=== PATIENT | male | born 1960 | race Caucasian/White ===

== ENCOUNTER → 2016-07-23 | Outpatient (CLI) | payer OTHER ==
[~2016-07-23] MED LIST: ASPI81TA28 PO; FURO40TA3 PO; KLOR CON PO; LRT5 PO; METO-217 PO; SIMV40TA4 PO; TELM40TA PO
[2016-07-23 12:44] LABS: HEMATOCRIT 46.1 % (42-52); MEAN CORPUSCULAR HEMOGLOBIN 31.3 pg (25-34); MEAN CORPUSCULAR HGB CONC 35.1 g/dl (32-36); MEAN PLATELET VOLUME 9.9 fL (7.4-10.4); PLATELET COUNT 154 K/uL (130-400); RED BLOOD COUNT 5.18 M/uL (4.7-6.1); WHITE BLOOD COUNT 7.97 K/uL (4.8-10.8)
[2016-07-23 13:03] LABS: CHOLESTEROL/HDL RATIO 2.7
== END | disposition home or self-care (01) ==
LOC: C.LABPBG 11:14
PROVIDERS: ATTEND Internal Medicine Geriatric Medicine
DX: Z00.00 Encounter for general adult medical examination without abnormal findings (principal)

== ENCOUNTER 2020-02-04 15:13 | Observation (INO) ==
--- NOTE | 2020-02-04 15:51 | Emergency Department Note ---
Impression & Plan VENESSA (acute kidney injury), Dehydration, Diarrhea ED Provider Note NAME: KATHE MOON AGE: 59 SEX: M : 1960 ARRIVES VIA: Walk-In INFORMANT: Patient, ED PROVIDER(S): Td Scales MD Chief Complaint: Low blood pressure HPI: Patient does present as a referral from the cancer center due to low blood pressure. The patient states that he has had some diarrheal symptoms since Saturday. No recent change in diet or medications. The patient did have a recent admission and discharge for persistent atrial fibrillation at the end of December for the patient was placed on digoxin. The patient did have recent change in his digoxin from 250 mcg to 125. This was last taken last night and has been taking his metoprolol 100 mg twice daily. Patient denies any infectious symptoms, fevers or chills. The patient has had some worsening fatigue lightheadedness and sleepiness.. The patient denies any blood in the urine or stool. The patient denies any urinary changes. The patient denies any lower extremity swelling, covered exposures. Patient does state that laying back he does have mild improvement in his symptoms. Patient is currently undergoing radiation therapy for prostate cancer for which she does see Dr. Arita. Patient does follow with Dr. Morse as well as with Dr. Cevallos with cardiology. ROS: See HPI for pertinent positives and negatives. A total of 10 systems were reviewed and otherwise negative. Past medical history: See below Surgical history: See below Social history: See below Physical Exam: GENERAL: Wearing glasses and a mask. NAD, non-toxic. EYE EXAM: Normal conjunctiva. PERRL, no anisocoria and EOM's grossly intact w/o pain. NECK: Supple, no nuchal rigidity, no adenopathy, non-tender. No signs of meningismus. LUNGS: Clear to auscultation. Normal chest wall mechanics. HEART: Irregularly irregular, no MRG. ABDOMEN: Abdomen soft, non-tender, normo-active bowel sounds, no masses, no rebound or guarding. BACK: No CVA TTP. SKIN: No rashes and no bruising. UPPER EXTREMITIES: Upper extremities are grossly normal. LOWER EXTREMITIES: Grossly normal, no edema. Homans sign bilaterally NEURO EXAM: A&O x3, cranial nerves II-XII grossly intact, normal speech, moves all 4 extremities on command w/o issue. Differential diagnoses: Infection, dehydration, metabolic abnormality, hypo/hyperglycemia, electrolyte disturbance, anemia, hypoxia, cardiac sources, intracerebral event, toxicologic, neurologic, as well as other pathologies. Course: Patient was seen and evaluated the bedside. Full history physical exam was performed. EKG: Indication: Lightheadedness A. fib, rate of 67, normal QRS, normal axis, T wave inversions inferiorly and laterally. The patient's A. fib is new but known to the patient from comparison EKG February 21, 2016. Patient's T wave versions do appear to be new compared to prior. Imaging Studies: Radiology results as stated below per my review in the radiologist's interpretation: XR chest 1V portable CLINICAL HISTORY: weakness COMPARISON STUDY: Chest CT February 19, 2016. Chest radiograph November 12, 2019. FINDINGS: There are median sternotomy wires. Incidental note is made of multiple old bilateral rib fractures. There is moderate cardiomegaly without evidence for pulmonary edema. There is no consolidation. The appearance of the chest is unchanged. Prosthetic aortic valve is noted. There is no pneumothorax or pleural effusion. IMPRESSION: No change in appearance of the chest. Cardiomegaly without evidence for pulmonary edema. ACT 112: Negative or not required by law. Electronically signed by: Bryan Lopez M.D. 02/04/2020 4:26 PM Dictated: 02/04/20 1625 Transcribed: 02/04/20 1625 Cardiac monitoring: An order was placed for continuous cardiac monitoring. The monitor shows a rate of 71 with irregularly irregular rhythm. MDM: Patient was seen due to concern for low blood pressure. The patient did have blood work completed along with an EKG troponin chest x-ray and was given IV fluids. The patient's chest x-ray is clear. Patient did have these EKG changes but the patient's prior EKG that I am able to view is from 2016. Has any chest pains or shortness of breath. Patient has a normal white count mild anemia hemoglobin 12.9. Normal platelet count is noted. Patient's kidney function does show elevated creatinine at 2.7. Patient has a baseline of approximately 1. The patient states that he has urinated twice since he has been here. Dig levels within a normal range. The patient would prefer to go home this time. I discussed that it may be of benefit to stay in the hospital given the patient's multiple medications and the patient's associated kidney dysfunction. I discussed the patient's case with the on-call waste management specialist Dr. Sawyer who agreed with my assessment/plan and recommended the patient be admitted for continued observation, renal function as well as medication management and IV fluids given the patient's acute renal dysfunction, VENESSA, dehydration as well as the fact that the patient is on renally excreted medications. I did speak the on-call hospitalist Dr. Stewart who admitted the patient to the medicine service. Of note the patient did feel improved after IV fluids. The patient is also urinated twice since receiving IV fluids. The patient's dig level within normal limits. Past Med/Surg History Medical History Asthma stable, rare inhaler use Atrial fibrillation dx'd 09/2019- placed on Eliquis Bicuspid aortic valve severe aortic stenosis s/p AVR (2009) Dyslipidemia HTN (hypertension) Lower back pain LING (obstructive sleep apnea) suspected Osteoarthritis Prostate cancer Prostate cancer Surgical History Biceps muscle tear 2014-surgical repair Heart valve replaced bovine AVR [facility] [place] History of bunionectomy both on left & right foot mid History of cardiac cath 2009 PRIOR TO AVR-NO STENTS History of colonoscopy History of hip replacement left replaced in 2001, right hip resurfaced in 2011 Family History Mother , age 75 from heart disease Diabetes Heart disease Father , age 74 heart issues COPD (chronic obstructive pulmonary disease) Daughter No problems noted. Son No problems noted. Social History Smoking Status: Never smoker Second Hand Exposure: Yes (PARENTS SMOKED); Hx Alcohol Use: Yes Alcohol type: beer Alcohol Intake Frequency Comment: 3-4 daily 2-3 times a week. 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 Feels Safe at Home: Yes Childhood Exposure to Second-Hand Smoke: Yes caffeine: Yes (1 cup a day) Dental Care, Regularly: Yes Allergies Allergies Allergy/AdvReac Type Severity Reaction Status Date / Time No Known Allergies Allergy Verified 02/04/20 17:34 dogs Allergy Severe diffiiculty Uncoded 02/04/20 17:34 breathing Home Meds Home Medications Medication Instructions Recorded Confirmed metoprolol succinate 50 mg 100 mg PO BID tab 10/20/19 02/04/20 tablet,extended release 24 hr simvastatin 40 mg tablet 40 mg PO QAM tab 10/20/19 02/04/20 Eliquis 5 mg PO BID 11/10/19 02/04/20 albuterol sulfate 1 inh INHALATION QID PRN 11/10/19 02/04/20 aspirin [Aspir-81] 81 mg PO QAM 11/10/19 02/04/20 potassium chloride [Klor-Con 10] 10 meq PO QAM 11/10/19 02/04/20 spironolactone 25 mg PO QAM 11/10/19 02/04/20 telmisartan 40 mg PO QAM 11/10/19 02/04/20 calcium carbonate 600 mg calcium 600 mg PO DAILY 12/23/19 02/04/20 (1,500 mg) tablet cholecalciferol (vitamin D3) 50 50 mcg PO DAILY 12/23/19 02/04/20 mcg (2,000 unit) tablet torsemide 20 mg tablet See Rx Instructions PO DAILY 01/13/20 02/04/20 digoxin 250 mcg (0.25 mg) tablet 250 mcg PO DAILY tab 01/26/20 02/04/20 diphenoxylate-atropine [Lomotil] 1 tab PO QID PRN 02/04/20 02/04/20 leuprolide (3 month) 22.5 mg SUBCUT UD 02/04/20 02/04/20 Previous Rx's Medication Instructions Recorded alfuzosin 10 mg tablet,extended 10 mg PO DAILY #90 tab 11/11/19 release 24 hr sildenafil 100 mg tablet 100 mg PO .COMPLEX PRN #6 tab 11/19/19 Results & Data (ED) Vital Signs Vital Signs - 24 hr 02/04/20 15:27 02/04/20 15:35 02/04/20 15:37 Temperature 36.5 C Temperature Source Oral Pulse Rate 71 60 62 Pulse Rate from SpO2 Sensor 65 65 Pulse Rhythm Regular Pulse Strength Normal Respiratory Rate 18 15 13 Respiratory Effort / Characteristics Non-Labored Spontaneous Respiratory Depth Normal Respiratory Pattern Regular Blood Pressure 75/42 L 72/50 L Blood Pressure Mean 53 51 Blood Pressure Position Sitting Pulse Oximetry 95 97 97 Oxygen Delivery Method Room Air Room Air Room Air Sepsis Recent Fever Within 48 Hours No Sepsis New/Unexplained Change in Mental Status N/A Sepsis Action Taken by Nursing No Action Required 02/04/20 15:40 02/04/20 15:49 02/04/20 15:50 Temperature Temperature Source Pulse Rate 70 62 Pulse Rate from SpO2 Sensor 72 60 Pulse Rhythm Pulse Strength Respiratory Rate 16 16 Respiratory Effort / Characteristics Respiratory Depth Respiratory Pattern Blood Pressure Blood Pressure Mean Blood Pressure Position Pulse Oximetry 98 100 Oxygen Delivery Method Room Air Room Air Room Air Sepsis Recent Fever Within 48 Hours Sepsis New/Unexplained Change in Mental Status Sepsis Action Taken by Nursing 02/04/20 16:00 02/04/20 16:01 02/04/20 16:10 Temperature Temperature Source Pulse Rate 65 62 61 Pulse Rate from SpO2 Sensor 62 68 61 Pulse Rhythm Pulse Strength Respiratory Rate 17 25 H 16 Respiratory Effort / Characteristics Respiratory Depth Respiratory Pattern Blood Pressure 85/51 L Blood Pressure Mean 64 Blood Pressure Position Pulse Oximetry 98 99 100 Oxygen Delivery Method Room Air Room Air Room Air Sepsis Recent Fever Within 48 Hours Sepsis New/Unexplained Change in Mental Status Sepsis Action Taken by Nursing 02/04/20 16:16 02/04/20 16:20 02/04/20 16:30 Temperature Temperature Source Pulse Rate 71 64 60 Pulse Rate from SpO2 Sensor 70 61 61 Pulse Rhythm Pulse Strength Respiratory Rate 18 22 16 Respiratory Effort / Characteristics Respiratory Depth Respiratory Pattern Blood Pressure 85/44 L Blood Pressure Mean 70 Blood Pressure Position Pulse Oximetry 98 96 94 Oxygen Delivery Method Room Air Room Air Room Air Sepsis Recent Fever Within 48 Hours Sepsis New/Unexplained Change in Mental Status Sepsis Action Taken by Nursing 02/04/20 16:31 02/04/20 16:32 02/04/20 16:40 Temperature Temperature Source Pulse Rate 63 68 70 Pulse Rate from SpO2 Sensor 59 L 66 67 Pulse Rhythm Pulse Strength Respiratory Rate 22 20 Respiratory Effort / Characteristics Respiratory Depth Respiratory Pattern Blood Pressure 97/58 L Blood Pressure Mean 60 Blood Pressure Position Pulse Oximetry 99 99 95 Oxygen Delivery Method Room Air Room Air Room Air Sepsis Recent Fever Within 48 Hours Sepsis New/Unexplained Change in Mental Status Sepsis Action Taken by Nursing 02/04/20 16:46 02/04/20 16:50 02/04/20 17:00 Temperature Temperature Source Pulse Rate 58 L 70 68 Pulse Rate from SpO2 Sensor 62 69 72 Pulse Rhythm Pulse Strength Respiratory Rate Respiratory Effort / Characteristics Respiratory Depth Respiratory Pattern Blood Pressure 90/58 L Blood Pressure Mean 68 Blood Pressure Position Pulse Oximetry 98 98 92 Oxygen Delivery Method Room Air Room Air Room Air Sepsis Recent Fever Within 48 Hours Sepsis New/Unexplained Change in Mental Status Sepsis Action Taken by Nursing 02/04/20 17:01 02/04/20 17:10 02/04/20 17:16 Temperature Temperature Source Pulse Rate 62 73 69 Pulse Rate from SpO2 Sensor 64 70 71 Pulse Rhythm Pulse Strength Respiratory Rate Respiratory Effort / Characteristics Respiratory Depth Respiratory Pattern Blood Pressure 93/55 L 95/62 L Blood Pressure Mean 69 70 Blood Pressure Position Pulse Oximetry 99 96 99 Oxygen Delivery Method Room Air Room Air Room Air Sepsis Recent Fever Within 48 Hours Sepsis New/Unexplained Change in Mental Status Sepsis Action Taken by Nursing 02/04/20 17:20 02/04/20 17:30 02/04/20 17:31 Temperature Temperature Source Pulse Rate 72 72 61 Pulse Rate from SpO2 Sensor 74 73 62 Pulse Rhythm Pulse Strength Respiratory Rate Respiratory Effort / Characteristics Respiratory Depth Respiratory Pattern Blood Pressure 97/60 L Blood Pressure Mean 77 Blood Pressure Position Pulse Oximetry 98 95 99 Oxygen Delivery Method Room Air Room Air Room Air Sepsis Recent Fever Within 48 Hours Sepsis New/Unexplained Change in Mental Status Sepsis Action Taken by Nursing 02/04/20 17:40 02/04/20 17:46 02/04/20 17:47 Temperature Temperature Source Pulse Rate 73 71 66 Pulse Rate from SpO2 Sensor 69 76 59 L Pulse Rhythm Pulse Strength Respiratory Rate Respiratory Effort / Characteristics Respiratory Depth Respiratory Pattern Blood Pressure 78/61 L 103/59 L Blood Pressure Mean 67 65 Blood Pressure Position Pulse Oximetry 98 99 98 Oxygen Delivery Method Room Air Room Air Room Air Sepsis Recent Fever Within 48 Hours Sepsis New/Unexplained Change in Mental Status Sepsis Action Taken by Nursing 02/04/20 17:48 02/04/20 17:50 02/04/20 18:00 Temperature Temperature Source Pulse Rate 63 70 71 Pulse Rate from SpO2 Sensor 65 68 63 Pulse Rhythm Pulse Strength Respiratory Rate Respiratory Effort / Characteristics Respiratory Depth Respiratory Pattern Blood Pressure Blood Pressure Mean Blood Pressure Position Pulse Oximetry 97 98 95 Oxygen Delivery Method Room Air Room Air Room Air Sepsis Recent Fever Within 48 Hours Sepsis New/Unexplained Change in Mental Status Sepsis Action Taken by Nursing 02/04/20 18:01 02/04/20 18:18 02/04/20 18:20 Temperature Temperature Source Pulse Rate 67 68 66 Pulse Rate from SpO2 Sensor 75 Pulse Rhythm Pulse Strength Respiratory Rate Respiratory Effort / Characteristics Respiratory Depth Respiratory Pattern Blood Pressure 97/56 L Blood Pressure Mean 68 Blood Pressure Position Pulse Oximetry 92 Oxygen Delivery Method Room Air Room Air Room Air Sepsis Recent Fever Within 48 Hours Sepsis New/Unexplained Change in Mental Status Sepsis Action Taken by Nursing 02/04/20 18:30 02/04/20 18:31 02/04/20 18:40 Temperature Temperature Source Pulse Rate 67 68 66 Pulse Rate from SpO2 Sensor 68 65 67 Pulse Rhythm Pulse Strength Respiratory Rate Respiratory Effort / Characteristics Respiratory Depth Respiratory Pattern Blood Pressure 88/53 L Blood Pressure Mean 54 Blood Pressure Position Pulse Oximetry 99 98 Oxygen Delivery Method Room Air Room Air Room Air Sepsis Recent Fever Within 48 Hours Sepsis New/Unexplained Change in Mental Status Sepsis Action Taken by Nursing 02/04/20 18:45 02/04/20 18:50 Temperature Temperature Source Pulse Rate 68 66 Pulse Rate from SpO2 Sensor 61 70 Pulse Rhythm Pulse Strength Respiratory Rate Respiratory Effort / Characteristics Respiratory Depth Respiratory Pattern Blood Pressure 106/61 Blood Pressure Mean 72 Blood Pressure Position Pulse Oximetry 98 98 Oxygen Delivery Method Room Air Room Air Sepsis Recent Fever Within 48 Hours Sepsis New/Unexplained Change in Mental Status Sepsis Action Taken by [facility] Medications Current Medication List: was personally reviewed by me Laboratory Data Attestation: I reviewed the patient's lab results. Result diagrams: 02/04/20 15:47 02/04/20 15:47 Lab Results 02/04/20 02/04/20 02/04/20 Range/Units 15:47 15:47 15:47 WBC 8.93 (4.8-10.8) K/uL RBC 4.11 L (4.7-6.1) M/uL Hgb 12.9 L (14.0-18.0) g/dL Hct 38.1 L (42-52) % MCV 92.7 (80-100) fL MCH 31.4 (25-34) pg MCHC 33.9 (32-36) g/dL RDW Std Deviation 46.2 (36.4-46.3) fL RDW Coeff of Janell 13.7 (11.5-14.5) % Plt Count 172 (130-400) K/uL MPV 10.0 (7.4-10.4) fL Immature Gran % (Auto) 0.2 % Neut % (Auto) 76.6 % Lymph % (Auto) 8.1 % [place] % (Auto) 10.1 % Eos % (Auto) 4.9 % Baso % (Auto) 0.1 % Neut # (Auto) 6.84 H (1.4-6.5) K/uL Lymph # (Auto) 0.72 L (1.2-3.4) K/uL [place] # (Auto) 0.90 H (0.11-0.59) K/uL Eos # (Auto) 0.44 (0-0.5) K/uL Baso # (Auto) 0.01 (0-0.2) K/uL Immature Gran # (Auto) 0.02 (0.00-0.02) K/uL PT 12.6 H (9.0-12.0) Seconds INR 1.2 H (0.9-1.1) Sodium 137 (136-145) mmol/L Potassium 3.6 (3.5-5.1) mmol/L Chloride 105 (98-107) mmol/L Carbon Dioxide 24 (21-32) mmol/L Anion Gap 8.0 (3-11) BUN 33 H (7-18) mg/dl Creatinine 2.73 H (0.6-1.4) mg/dl Est Cr Clr Drug Dosing Not Reportable Est GFR ( Amer) 27.8 Est GFR (Non-Af Amer) 24.0 BUN/Creatinine Ratio 11.9 (10-20) Glucose 129 H (70-99) mg/dl Calcium 9.2 (8.5-10.1) mg/dl Phosphorus 4.0 (2.5-4.9) mg/dl Magnesium 1.9 (1.8-2.4) mg/dl Total Bilirubin 0.8 (0.2-1) mg/dl AST 17 (15-37) U/L ALT 34 (12-78) U/L Alkaline Phosphatase 70 (45-117) U/L Troponin I < 0.015 (0-0.045) ng/ml Total Protein 7.2 (6.4-8.2) gm/dl Albumin 3.5 (3.4-5.0) gm/dl Globulin 3.7 (2.5-4.0) gm/dl Albumin/Globulin Ratio 0.9 (0.9-2) TSH 0.522 (0.300-4.500) uIu/ml Digoxin (0.8-2.0) ng/ml 02/04/20 Range/Units 15:47 WBC (4.8-10.8) K/uL RBC (4.7-6.1) M/uL Hgb (14.0-18.0) g/dL Hct (42-52) % MCV (80-100) fL MCH (25-34) pg MCHC (32-36) g/dL RDW Std Deviation (36.4-46.3) fL RDW Coeff of Janell (11.5-14.5) % Plt Count (130-400) K/uL MPV (7.4-10.4) fL Immature Gran % (Auto) % Neut % (Auto) % Lymph % (Auto) % [place] % (Auto) % Eos % (Auto) % Baso % (Auto) % Neut # (Auto) (1.4-6.5) K/uL Lymph # (Auto) (1.2-3.4) K/uL [place] # (Auto) (0.11-0.59) K/uL Eos # (Auto) (0-0.5) K/uL Baso # (Auto) (0-0.2) K/uL Immature Gran # (Auto) (0.00-0.02) K/uL PT (9.0-12.0) Seconds INR (0.9-1.1) Sodium (136-145) mmol/L Potassium (3.5-5.1) mmol/L Chloride (98-107) mmol/L Carbon Dioxide (21-32) mmol/L Anion Gap (3-11) BUN (7-18) mg/dl Creatinine (0.6-1.4) mg/dl Est Cr Clr Drug Dosing Est GFR ( Amer) Est GFR (Non-Af Amer) BUN/Creatinine Ratio (10-20) Glucose (70-99) mg/dl Calcium (8.5-10.1) mg/dl Phosphorus (2.5-4.9) mg/dl Magnesium (1.8-2.4) mg/dl Total Bilirubin (0.2-1) mg/dl AST (15-37) U/L ALT (12-78) U/L Alkaline Phosphatase (45-117) U/L Troponin I (0-0.045) ng/ml Total Protein (6.4-8.2) gm/dl Albumin (3.4-5.0) gm/dl Globulin (2.5-4.0) gm/dl Albumin/Globulin Ratio (0.9-2) TSH (0.300-4.500) uIu/ml Digoxin 1.3 (0.8-2.0) ng/ml Administered Medications Discontinued Medications Sodium Chloride (Nss 1000ml) 1,000 mls @ 999 mls/hr IV .Q1H1M PHUONG Stop: 02/04/20 17:15 Last Infusion: 02/04/20 17:11 Dose: 0 mls/hr Documented by: [id number] Admin: 02/04/20 16:09 Dose: 999 mls/hr Documented by: [id number] Discharge Plan Visit Data Chief Complaint: Hypotension Stated Complaint: HYPOTENSION,DIARRHEA,CANCER PT ED Provider: Td Scales Discharge Problem: VENESSA (acute kidney injury), Dehydration, Diarrhea Forms Stand Alone Forms: [facility] [place] [employer] Prescriptions Prescriptions: No Action cholecalciferol (vitamin D3) 50 mcg (2,000 unit) tablet 50 mcg PO DAILY RF: 0 calcium carbonate 600 mg calcium (1,500 mg) tablet 600 mg PO DAILY RF: 0 sildenafil 100 mg tablet 100 mg PO .COMPLEX PRN (Reason: sexual activity) Qty: 6 RF: 3 torsemide 20 mg tablet See Rx Instructions PO DAILY RF: 0 digoxin 250 mcg (0.25 mg) tablet 250 mcg PO DAILY RF: 0 alfuzosin [Uroxatral] 10 mg tablet extended release 24 hr 10 mg PO DAILY Qty: 90 RF: 1 metoprolol succinate 50 mg tablet extended release 24 hr 100 mg PO BID RF: 0 simvastatin 40 mg tablet 40 mg PO QAM RF: 0 aspirin [Aspir-81] 81 mg Tablet,Delayed Release (Dr/Ec) 81 mg PO QAM RF: 0 potassium chloride [Klor-Con 10] 10 mEq tablet extended release 10 meq PO QAM RF: 0 telmisartan 40 mg tablet 40 mg PO QAM RF: 0 spironolactone 25 mg Tablet 25 mg PO QAM RF: 0 Eliquis 5 mg Tablet 5 mg PO BID RF: 0 albuterol sulfate 90 mcg/actuation Hfa Aerosol Inhaler 1 inh INHALATION QID PRN (Reason: Wheezing) RF: 0 diphenoxylate-atropine [Lomotil] 2.5-0.025 mg tablet 1 tab PO QID PRN (Reason: diarrhea) RF: 0 leuprolide (3 month) 22.5 mg syringe 22.5 mg subcut UD RF: 0 Discharge Problem: Diarrhea Qualifiers: Diarrhea type: unspecified type Qualified Code(s): R19.7 - Diarrhea, unspecified
[2020-02-04 16:15] LABS: Basophils # (auto) 0.01 K/uL (0-0.2); Basophils % (auto) 0.1 %; Eosinophils # (auto) 0.44 K/uL (0-0.5); Eosinophils % (auto) 4.9 %; Hematocrit (blood only) 38.1 % (42-52); Hemoglobin 12.9 g/dL (14.0-18.0); Immature Granulocytes # (auto) 0.02 K/uL (0.00-0.02); Immature Granulocytes % (auto) 0.2 %; Lymphocytes # (auto) 0.72 K/uL (1.2-3.4); Lymphocytes % (auto) 8.1 %; Mean Corpuscular Hemoglobin 31.4 pg (25-34); Mean Corpuscular Hgb Conc 33.9 g/dL (32-36); Mean Corpuscular Volume 92.7 fL (80-100); Monocytes % (auto) 10.1 %; Neutrophils # (auto) 6.84 K/uL (1.4-6.5); Neutrophils % (auto) 76.6 %; Platelet Count 172 K/uL (130-400); RDW Coefficient of Variation 13.7 % (11.5-14.5); RDW Standard Deviation 46.2 fL (36.4-46.3); Red Blood Count 4.11 M/uL (4.7-6.1); White Blood Count 8.93 K/uL (4.8-10.8)
[2020-02-04] MEDS ORDERED: SODIUM CHLORIDE 0.9% 1000ML 1,000 ML IV SCH (16:15)
[2020-02-04 16:22] LABS: Alanine Aminotransferase 34 U/L (12-78); Albumin Level 3.5 gm/dl (3.4-5.0); Aspartate Aminotransferase 17 U/L (15-37); BUN Creatinine Ratio 11.9 (10-20); Blood Urea Nitrogen 33 mg/dl (7-18); Calcium 9.2 mg/dl (8.5-10.1); Carbon Dioxide 24 mmol/L (21-32); Chloride 105 mmol/L (98-107); Est GFR (African American) 27.8; Glucose 129 mg/dl (70-99); Magnesium 1.9 mg/dl (1.8-2.4); Potassium 3.6 mmol/L (3.5-5.1); Sodium 137 mmol/L (136-145)
[2020-02-04 16:24] LABS: INR 1.2 (0.9-1.1); Prothrombin Time 12.6 Seconds (9.0-12.0)
--- NOTE | 2020-02-04 16:27 | XRay Report ---
XR chest 1V portable CLINICAL HISTORY: weakness COMPARISON STUDY: Chest CT February 19, 2016. Chest radiograph November 12, 2019. FINDINGS: There are median sternotomy wires. Incidental note is made of multiple old bilateral rib fr actures. There is moderate cardiomegaly without evidence for pulmonary edema. There is no consolidati on. The appearance of the chest is unchanged. Prosthetic aortic valve is noted. There is no pneumotho rax or pleural effusion. IMPRESSION: No change in appearance of the chest. Cardiomegaly without evidence for pulmonary edema. ACT 112: Negative or not required by law. Electronically signed by: Bryan Lopez M.D. 02/04/2020 4:26 PM
[2020-02-04 16:31] LABS: Albumin Globulin Ratio 0.9 (0.9-2); Alkaline Phosphatase 70 U/L (45-117); Bilirubin,Total 0.8 mg/dl (0.2-1); Globulin 3.7 gm/dl (2.5-4.0); Thyroid Stimulating Hormone 0.522 uIu/ml (0.300-4.500); Total Protein 7.2 gm/dl (6.4-8.2); Troponin I < 0.015 ng/ml (0-0.045)
--- NOTE | 2020-02-04 18:17 | History & Physical Report ---
Date of Service February 04, 2020 Assessment & Plan (1) VENESSA (acute kidney injury): Suspect secondary to diarrhea while on torsemide and spironolactone. UA pending to assess for granular casts Hold telmisartan, torsemide and spironolactone. Bladder scan PVR to assess for urinary retention. 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 Stool culture and c. diff pending Lomotil can be restarted if c. diff negative. (3) Prostate cancer: Radiation seeds implanted in November. Currently on Leuprolide. Week 4 of [address] Arita - radiation oncology. (4) Atrial fibrillation: Hold digoxin and Eliquis until renal function improves - can likely be restarted in AM. Continue metoprolol succinate 100 mg PO BID (5) Heart failure with reduced ejection fraction: Monitor for fluid overload given significant quantity/dose of diuretics he usually takes. (6) HTN (hypertension): Monitor for hypertension as we hold his anti-hypertensives. Ok to continue metoprolol succinate to avoid rebound tachycardia with a. fib. (7) Bicuspid aortic valve: s/p AVR 2009 (8) DVT prophylaxis: Restart Eliquis once renal function improves. Admission and Anticipated Discharge Date Admission Date: 02/04/2020 History of Present Illness Chief Complaint: Diarrhea, hypotension Primary Care Provider: Nancie Wolff PA-C [place] Williamson is a 59 year old male with prostate cancer undergoing radiation therapy who presents to the ER on the advice of his oncologist due to hypotension. He reports having sudden onset watery diarrhea for the last 4 days. Associated dizziness and lightheadedness, no chest pain. Urinating less but no nocturia, terminal dribbling, change in stream or urinary frequency. BP 56/33 in his oncologist office. No recent antibiotics. In the ER Cr was found to be elevated from baseline 1.18 to 2.73. No nausea or vomiting, reduced appetite, no blood, no melena. No abdominal pain. Lomotil started yesterday and has been helping. He also noted digoxin reduced from 250 to 125 mcg 2-3 weeks ago due to elevated level. Prostate cancer - Radiation seeds implanted in November. Currently on Leuprolide. We ek 4 of [address] Arita - radiation oncology. Allergies Allergy/AdvReac Type Severity Reaction Status Date / Time No Known Allergies Allergy Verified 02/04/20 17:34 dogs Allergy Severe diffiiculty Uncoded 02/04/20 17:34 breathing Home Medications Home Medications Medication Instructions Recorded Confirmed Type metoprolol succinate 50 mg 100 mg PO BID tab 10/20/19 02/04/20 History tablet,extended release 24 hr simvastatin 40 mg tablet 40 mg PO QAM tab 10/20/19 02/04/20 History Eliquis 5 mg PO BID 11/10/19 02/04/20 History albuterol sulfate 1 inh INHALATION QID PRN 11/10/19 02/04/20 History aspirin [Aspir-81] 81 mg PO QAM 11/10/19 02/04/20 History potassium chloride [Klor-Con 10] 10 meq PO QAM 11/10/19 02/04/20 History spironolactone 25 mg PO QAM 11/10/19 02/04/20 History telmisartan 40 mg PO QAM 11/10/19 02/04/20 History alfuzosin 10 mg tablet,extended 10 mg PO DAILY #90 tab 11/11/19 02/04/20 Rx release 24 hr sildenafil 100 mg tablet 100 mg PO .COMPLEX PRN #6 tab 11/19/19 02/04/20 Rx calcium carbonate 600 mg calcium 600 mg PO DAILY 12/23/19 02/04/20 History (1,500 mg) tablet cholecalciferol (vitamin D3) 50 50 mcg PO DAILY 12/23/19 02/04/20 History mcg (2,000 unit) tablet torsemide 20 mg tablet See Rx Instructions PO DAILY 01/13/20 02/04/20 History digoxin 250 mcg (0.25 mg) tablet 125 mcg PO DAILY tab 01/26/20 02/05/20 History diphenoxylate-atropine [Lomotil] 1 tab PO QID PRN 02/04/20 02/04/20 History leuprolide (3 month) 22.5 mg SUBCUT UD 02/04/20 02/04/20 History Past Med/Surg History Medical History Asthma stable, rare inhaler use Atrial fibrillation dx'd 09/2019- placed on Eliquis Bicuspid aortic valve severe aortic stenosis s/p AVR (2009) Dyslipidemia HTN (hypertension) Lower back pain LING (obstructive sleep apnea) suspected Osteoarthritis Prostate cancer Prostate cancer Surgical History Biceps muscle tear 2014-surgical repair Heart valve [place] [facility] [place] History of bunionectomy both on left & right foot mid History of cardiac cath 2010 PRIOR TO AVR-NO STENTS History of colonoscopy History of hip replacement left replaced in 2001, right hip resurfaced in 2011 Family History Mother , age 75 from heart disease Diabetes Heart disease Father , age 74 heart issues COPD (chronic obstructive pulmonary disease) Daughter No problems noted. Son No problems noted. Social History Smoking Status: Never smoker Second Hand Exposure: Yes (PARENTS SMOKED); Do You Dip or Chew Tobacco: No; Hx Alcohol Use: Yes Alcohol type: beer Alcohol Intake Frequency Comment: 3-4 daily 2-3 times a week. 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 Feels Safe at Home: Yes Childhood Exposure to Second-Hand Smoke: Yes caffeine: Yes (1 cup a day) Dental Care, Regularly: Yes Review of Systems Review of Systems: All systems reviewed & are unremarkable except as noted in HPI & below Physical Exam Constitutional: WD/WN, vitals as above + obese Eyes: + anicteric sclerae; normal pupil size ENMT: external ear and nose normal, oropharynx normal Neck: trachea midline, no thyromegaly Respiratory: normal respiratory effort, lungs clear to auscultation Cardiovascular: Rate/Rhythm: regular rate and regular rhythm Heart Sounds: no murmur Extremities: normal capillary refill and + pedal edema (1+ to mid shins b/l equal); no calf tenderness Gastrointestinal (Abdomen): Inspection/Auscultation: abdomen normal to inspection and + hyperactive bowel sounds; abdomen not distended Percussion/Palpation: abdomen soft; abdomen nontender, no guarding and abdomen not rigid Musculoskeletal: no cyanosis or clubbing, extremities motor strength 5/5 Skin: no rashes, warm and dry Neurologic: moves all extremities and awake; not confused Psychiatric: A+Ox3, euthymic affect Genitourinary: no CVA tenderness Results & Data Results & Data ([facility]) Vital Signs (Past 12 Hours) Vital Signs Temp Pulse Resp BP Pulse Ox 02/04/20 17:47 66 103/59 L 98 02/04/20 17:46 71 78/61 L 99 02/04/20 17:40 73 98 02/04/20 17:31 61 97/60 L 99 02/04/20 17:30 72 95 02/04/20 17:20 72 98 02/04/20 17:16 69 95/62 L 99 02/04/20 17:10 73 96 02/04/20 17:01 62 93/55 L 99 02/04/20 17:00 68 92 02/04/20 16:50 70 98 02/04/20 16:46 58 L 90/58 L 98 02/04/20 16:40 70 95 02/04/20 16:32 68 20 99 02/04/20 16:31 63 22 97/58 L 99 02/04/20 16:30 60 16 94 02/04/20 16:20 64 22 96 02/04/20 16:16 71 18 85/44 L 98 02/04/20 16:10 61 16 100 02/04/20 16:01 62 25 H 85/51 L 99 02/04/20 16:00 65 17 98 02/04/20 15:50 62 16 100 02/04/20 15:40 70 16 98 02/04/20 15:37 62 13 97 02/04/20 15:35 60 15 72/50 L 97 02/04/20 15:27 36.5 C 71 18 75/42 L 95 Diagnostic Findings XR chest 1V portable IMPRESSION: No change in appearance of the chest. Cardiomegaly without evidence for pulmonary edema. Code Status & VTE Plan Code Status Full VTE Prophylaxis Plan VTE Prophylaxis will be ordered: Yes PG Care Time/CCT Total # of Minutes Spent Total Time Spent with Patient: Total time spent is greater than 50% in coordination of care (as documented) at patient's floor/unit and/or counseling patient: Coding Level of Care Code 49951 Initial Inpt Care Lvl 2 History Comprehensive Exam Comprehensive Medical Decision Making Moderate Complexity Diagnoses VENESSA (acute kidney injury) N17.9 Diarrhea R19.7 Diarrhea type: unspecified type Prostate cancer C61 Atrial fibrillation I48.91 Heart failure with reduced ejection fraction I50.20 HTN (hypertension) I10 Bicuspid aortic valve Q23.1 DVT prophylaxis Z29.9 (1) Diarrhea Diarrhea type: unspecified type Qualified Code(s): R19.7 - Diarrhea, unspecified
[2020-02-04] MEDS ORDERED: POLYETHYLENE (MIRALAX) 17 GM PACK PO PRN (19:11)
[2020-02-04] MEDS ORDERED: ONDANSETRON INJ 2 MG/ML 2 ML VIAL IV PRN (19:40)
[2020-02-04] MEDS ORDERED: ALBUTEROL HFA 8 GM INHALER INH PRN (19:40)
[2020-02-04] MEDS ORDERED: ACETAMINOPHEN 325 MG TAB PO PRN (19:40)
[2020-02-04] MEDS ORDERED: DIPHENOXYLATE/ATROPINE 2.5/0.025MG 5ML PO PRN (21:04)
[2020-02-04] MEDS: METOPROLOL SUCC 50MG EXT REL TAB PO SCH (21:31)
[2020-02-04] MEDS ORDERED: SODIUM CHLORIDE 0.9% 1000ML 1,000 ML IV ONE (22:18)
[2020-02-05] MEDS: NSS + 20MEQ KCL 20 MEQ/1,000 ML BAG IV SCH ×2 (00:11→05:46)
[2020-02-05 00:41] LABS: Appearance Urine Clear (Clear); Bilirubin Urine Negative (Negative); Blood Urine Negative (Negative); Color Urine Yellow; Glucose Urine UA Negative (Negative); Ketones Urine Negative (Negative); Leukocyte Esterase Urine Negative (Negative); Nitrite Urine Negative (Negative); Protein Urine Negative (Negative); Specific Gravity Urine 1.017 (1.000-1.030); Urobilinogen Urine Negative (Negative)
[2020-02-05] MEDS: DIPHENOXYLATE/ATROPINE 2.5MG/0.025MG/5ML PO SCH ×2 (03:11→08:29)
[2020-02-05 03:14] VITALS: PULSE 70
[2020-02-05 07:18] VITALS: BP 92/54; TEMP 97.7; O2SAT 95
--- NOTE | 2020-02-05 08:21 | Electrocardiogram Report ---
Test Reason : Blood Pressure : / mmHG Vent. Rate : 067 BPM Atrial Rate : 059 BPM P-R Int : 000 ms QRS Dur : 102 ms QT Int : 406 ms P-R-T Axes : 000 063 252 degrees QTc Int : 429 ms Atrial fibrillation Abnormal ECG When compared with ECG of 21-FEB-2016 06:20, Atrial fibrillation has replaced Sinus rhythm ST now depressed in Anterior leads T wave inversion now evident in Inferior leads T wave inversion now evident in Anterolateral leads Confirmed by Morro Goel ([id number]) on 02/05/2020 8:21:24 AM Referred By: REFERRED SELF Confirmed By:Morro Goel
[2020-02-05 08:23] LABS: BUN Creatinine Ratio 18.6 (10-20); Calcium 8.1 mg/dl (8.5-10.1); Creatinine Clr Calc Pharmacy 68.3 ml/min; Est GFR (African American) 55.2; Est GFR (Non-African American) 47.6; Potassium 3.6 mmol/L (3.5-5.1)
[2020-02-05] MEDS: METOPROLOL SUCC 50MG EXT REL TAB PO SCH (08:30)
[2020-02-05] MEDS ORDERED: CALCIUM CARBONATE 1250MG TAB PO SCH (09:00)
[2020-02-05] MEDS ORDERED: TELMISARTAN 40 MG TAB PO SCH (09:00)
[2020-02-05] MEDS ORDERED: ASPIRIN 81 MG ECTAB PO SCH (09:00)
[2020-02-05] MEDS ORDERED: SIMVASTATIN 40 MG TAB PO SCH (09:00)
[2020-02-05] MEDS ORDERED: ALFUZOSIN HCL 10 MG TAB PO SCH (09:00)
[2020-02-05] MEDS ORDERED: POTASSIUM CHLORIDE 10 MEQ TABCR PO SCH (09:00)
[2020-02-05] MEDS ORDERED: CHOLECALCIFEROL 1,000 UNITS 25 MCG TAB PO SCH (09:00)
--- NOTE | 2020-02-05 17:53 | Discharge Summary ---
Date of Service February 05, 2020 Admission HPI Per Admitting Provider Washington Williamson is a 59 year old male with prostate cancer undergoing radiation therapy who presents to the ER on the advice of his oncologist due to hypotension. He reports having sudden onset watery diarrhea for the last 4 days. Associated dizziness and lightheadedness, no chest pain. Urinating less but no nocturia, terminal dribbling, change in stream or urinary frequency. BP 56/33 in his oncologist office. No recent antibiotics. In the ER Cr was found to be elevated from baseline 1.18 to 2.73. No nausea or vomiting, reduced appetite, no blood, no melena. No abdominal pain. Lomotil started yesterday and has been helping. He also noted digoxin reduced from 250 to 125 mcg 2-3 weeks ago due to elevated level. Prostate cancer - Radiation seeds implanted in November. Currently on Leuprolide. Week 4 of [address] Arita - radiation oncology. Principal Diagnosis Acute kidney injury Discharge Exam Constitutional WD/WN, vitals as above Eyes EOM intact bilaterally; no conjunctival abnormality ENMT external ear and nose normal, oropharynx normal Neck trachea midline, no thyromegaly normal visual inspection Respiratory normal respiratory effort, lungs clear to auscultation no respiratory distress Cardiovascular RRR, no murmur, no edema Gastrointestinal (Abdomen) Inspection/Auscultation: abdomen normal to inspection; abdomen not distended Musculoskeletal no cyanosis or clubbing, extremities motor strength 5/5 Skin no rashes, warm and dry Neurologic moves all extremities and awake Psychiatric Orientation: alert, oriented to person and cooperative Discharge Data Allergies Allergy/AdvReac Type Severity Reaction Status Date / Time No Known Allergies Allergy Verified 02/04/20 17:34 dogs Allergy Severe diffiiculty Uncoded 02/04/20 17:34 breathing Consultations 02/04/20 17:43 ED Decision to Admit Stat Hospital Course (1) VENESSA (acute kidney injury): Suspect secondary to diarrhea while on torsemide and spironolactone. - Cr went from 2.7 to 1.55 after IV fluids and holding diuretics. PVRs showed no obstruction and good bladder emptying. - Will hold diuretics and telmisartan until diarrhea resolves. 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 C. diff negative. - Lomotil can be restarted if c. diff negative. - He will discuss with Dr. Arita in regards to possibly lowering his radiation dosage. (3) Prostate cancer: Radiation seeds implanted in November. Currently on Leuprolide. Week 4 of [address] Arita - radiation oncology. (4) Atrial fibrillation: Held digoxin and Eliquis until renal function improves. Continue metoprolol succinate 100 mg PO BID - Resume all on discharge. (5) Heart failure with reduced ejection fraction: Monitor for fluid overload given significant quantity/dose of diuretics he usually takes. - Long discussion regarding volume status. Advised to take weights every day. 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 Gonzáles. He has his personal cell phone, and I encouraged him to reach out soon to make sure he doesn't end up with volume overload. (6) HTN (hypertension): Monitor for hypertension as we hold his anti-hypertensives. Ok to continue metoprolol succinate to avoid rebound tachycardia with a. fib. (7) Bicuspid aortic valve: s/p AVR 2009 (8) DVT prophylaxis: Restart Eliquis once renal function improves. Total Time Total Time Spent Total Time Spent (In Minutes): 35 Discharge Plan Discharge Items Patient Disposition: Home - Self-Care Reason For Visit: VENESSA Discharge Diagnosis: Kidney injury from diarrhea and diuretic medications Activity: Resume your previous activity Non-emergency contact: Primary Care Provider and Machine Molder Squeeze Call non-emergency contact if: your symptoms worsen Follow-up/Referrals: Nancie Wolff PA-C [Primary Care Provider] - 02/12/20 8:30 am (You have an appt with Nancie on SaturdayFeb 11 at 0830am. Please arrive 15 minutes prior to your appt. It is important that you keep this appt, if it does not fit your schedule please call [phone] to reschedule. ) Diet: Heart Healthy Add Attending Provider Instructions: Mr. Williamson, You were admitted to the hospital for kidney injury from dehydration. This was from your diarrhea along with your diuretic medications. Please take the Lomotil up to 4 times per day for your diarrhea. Please speak with Dr. Arita today or on Saturday regarding any needed adjustment of your radiation as it seems to be causing significant diarrhea. Please hold your torsemide, spironolactone, and telmisartan for the weekend, then discuss restarting each of these with Dr. Gonzáles. Please weigh yourself every day to be sure you are not gaining or losing weight. If you start gaining weight, please contact Dr. Gonzáles. Your weight here is 260 lbs. This looks like a solid 10 lbs lower than your usual weight. So, if you start to gain weight, this may be ok as you return to your normal weight and are no longer dehydrated. But, speaking with Dr. Gonzáles would be important to be sure it's not "fluid weight" that can cause a CHF exacerbation. Pending Studies at Discharge: No Stand-Alone Forms: My [facility] [employer], Smoking Cessation Medications and DC Order Prescriptions: Continued cholecalciferol (vitamin D3) 50 mcg (2,000 unit) tablet 50 mcg PO DAILY RF: 0 calcium carbonate 600 mg calcium (1,500 mg) tablet 600 mg PO DAILY RF: 0 sildenafil 100 mg tablet 100 mg PO .COMPLEX PRN (Reason: sexual activity) Qty: 6 RF: 3 digoxin 250 mcg (0.25 mg) tablet 125 mcg PO DAILY RF: 0 alfuzosin [Uroxatral] 10 mg tablet extended release 24 hr 10 mg PO DAILY Qty: 90 RF: 1 metoprolol succinate 50 mg tablet extended release 24 hr 100 mg PO BID RF: 0 simvastatin 40 mg tablet 40 mg PO QAM RF: 0 aspirin [Aspir-81] 81 mg Tablet,Delayed Release (Dr/Ec) 81 mg PO QAM RF: 0 potassium chloride [Klor-Con 10] 10 mEq tablet extended release 10 meq PO QAM RF: 0 Eliquis 5 mg Tablet 5 mg PO BID RF: 0 albuterol sulfate 90 mcg/actuation Hfa Aerosol Inhaler 1 inh INHALATION QID PRN (Reason: Wheezing) RF: 0 diphenoxylate-atropine [Lomotil] 2.5-0.025 mg tablet 1 tab PO QID PRN (Reason: diarrhea) RF: 0 leuprolide (3 month) 22.5 mg syringe 22.5 mg subcut UD RF: 0 Discontinued torsemide 20 mg tablet See Rx Instructions PO DAILY RF: 0 telmisartan 40 mg tablet 40 mg PO QAM RF: 0 spironolactone 25 mg Tablet 25 mg PO QAM RF: 0 Discharge Orders: Discharge Order (Routine); Ordered 02/05/20 Ordered By: Braydon Cota Admission Data Admit Date/Time: 02/04/20 18:15 Attending Provider: Braydon Cota Admit Provider: Silas Stewart Primary Care Provider: Nancie Wolff Other Providers: Braydon Cota Other Interventions: Discharge Summary Assessment (RN) Last Done: 02/05/20 10:05 Coding Level of Care Code D/C Day Management >30 mins Diagnoses VENESSA (acute kidney injury) N17.9 Diarrhea R19.7 Diarrhea type: unspecified type Prostate cancer C61 Atrial fibrillation I48.91 Heart failure with reduced ejection fraction I50.20 HTN (hypertension) I10 Bicuspid aortic valve Q23.1 DVT prophylaxis Z29.9
== END 2020-02-05 11:27 | disposition home or self-care (01) ==
LOC: ED 15:13 → 2W 18:15 → SUATTDRO 18:15 → INTOOBSV 18:15 → 2W 19:07

== ENCOUNTER 2022-10-14 11:20 | Observation (INO) ==
[2022-10-14] MEDS ORDERED: VANCOMYCIN CONSULT ACTIVE PRN (11:46)
[2022-10-14] MEDS ORDERED: CEFEPIME 2,000 MG/20 ML VIAL IV STA (11:46)
[2022-10-14] MEDS ORDERED: VANCOMYCIN HCL 2,000 MG in SODIUM CHLORIDE 0.9% 500 ML IV ONE (11:46)
--- NOTE | 2022-10-14 11:54 | Emergency Department Note ---
History of Present Illness General Chief complaint: Skin Problem Stated complaint: CELLULITIS ON R LEG Time Seen by Provider: 10/14/22 11:28 History of Present Illness Maximum Pain Intensity: 8 This is a 62-year-old male that presents to the emergency department via private vehicle with complaints of "cellulitis on right leg". The patient notes that a few weeks [place] [facility] when he states that while getting into the shower he injured the skin on the distal right first toe. He did not think much of it and did not have any issues until earlier this previous week. He notes that he had the sensation that he was freezing, chills and did not feel well. He noted redness and swelling to the right leg. He was evaluated by PCP and diagnosed with cellulitis and prescribed amoxicillin 875 p.o. twice daily. He has been compliant with this medication. He notes that despite the antibiotics he continues with worsening symptoms. He notes his current discomfort is an 8/10. He also has associated headache and chills and does not feel well. He has never had this before. Home Medications Medication Instructions Recorded Confirmed Type apixaban 5 mg tablet (Eliquis) 5 mg PO BID 11/10/19 10/14/22 History aspirin 81 mg tablet,delayed 81 mg PO QAM 11/10/19 10/14/22 History release (Aspir-) digoxin 250 mcg (0.25 mg) tablet 250 mcg PO QPM 07/08/20 10/14/22 History spironolactone 25 mg tablet 25 mg PO QAM 07/08/20 10/14/22 History torsemide 20 mg tablet 40 mg PO BID 07/20/20 10/14/22 History metoprolol succinate 100 mg 100 mg PO BID 12/22/20 10/14/22 History tablet,extended release 24 hr potassium chloride 10 mEq 40 meq PO QAM 01/26/21 10/14/22 History tablet,extended release (Klor-Con) simvastatin 40 mg tablet 40 mg PO DAILY #90 tabs 09/25/21 10/14/22 Rx cholecalciferol (vitamin D3) 100 200 mcg PO DAILY 01/24/22 10/14/22 History mcg (4,000 unit) tablet sildenafil 100 mg tablet See Rx Instructions .Route 01/25/22 10/14/22 Rx .COMPLEX #30 tabs allopurinol 300 mg tablet 300 mg PO DAILY #90 tabs 07/13/22 10/14/22 Rx cetirizine 10 mg tablet (Zyrtec) 10 mg PO DAILY PRN Allergy Symptoms 08/23/22 10/14/22 History amoxicillin 875 mg tablet 875 mg PO BID #12 Tabs 10/11/22 10/14/22 Rx Allergies Allergy/AdvReac Type Severity Reaction Status Date / Time dog dander Allergy Severe respiratory Verified 10/11/22 16:19 issues, eyes swell shut Past Med/Surg History Medical History Ascending aortic aneurysm Asthma stable, rare inhaler use Atrial fibrillation Bicuspid aortic valve Dyslipidemia HTN (hypertension) Lower back pain On anticoagulant therapy LING (obstructive sleep apnea) suspected Osteoarthritis Prostate cancer (07/23/19) Surgical History Biceps muscle tear 2014-surgical repair History of bunionectomy both on left & right foot mid History of cardiac cath 2009 PRIOR TO AVR-NO STENTS History of colonoscopy most recent 12/28/20 [facility], Repeat 10 yrs History of hip replacement left replaced in 2001, right hip resurfaced in 2011 History of prostate biopsy malignant History of prostate surgery (~11/25/19) transperineal brachytherapy Hx of aortic valve replacement (~2009) [place] [facility] [place] Family History Mother Diabetes Heart disease Myocardial infarction Father COPD (chronic obstructive pulmonary disease) Daughter No problems noted. Son No problems noted. Other No family history of adverse response to anesthesia Denies family history of Ovarian cancer Prostate cancer Breast cancer Colorectal cancer Social History Smoking Status: Never smoker Second Hand Exposure: No; Do You Dip or Chew Tobacco: No; Tobacco Cessation Education Requested by Patient: No Hx Alcohol Use: Yes Alcohol type: wine Alcohol Intake Frequency: 2-3 x/Week Alcohol Intake Frequency Comment: 3-4 daily 2-3 times a week. 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 How many Children do You have: 2 Other Information That Helps Us Care for You: No Feels Safe at Home: Yes Childhood Exposure to Second-Hand Smoke: Yes (both parents did ) caffeine: Yes (1-2 cup coffee in morning ) Dental Care, Regularly: Yes Physical Activity Frequency: 3-4 Times per Week Physical Activity Frequency Comment: does treadmill Seatbelt Use: always Sunscreen Use: Yes Assistive Devices: Glasses Review of Systems A total of 10 systems reviewed and were otherwise negative Physical Exam Vital Signs Vital Signs - 24 hr 10/14/22 11:23 10/14/22 12:26 10/14/22 13:47 Temperature 36.8 C Temperature Source Temporal Artery Scan Pulse Rate 91 H Pulse Rate [Apical] 84 Respiratory Rate 18 16 Respiratory Effort / Characteristics Non-Labored Blood Pressure 129/85 Blood Pressure [Left Arm] 147/84 H Blood Pressure Mean 99 Blood Pressure Mean [Left Arm] 105 Pulse Oximetry 97 98 96 Oxygen Delivery Method Room Air Room Air Room Air Sepsis Recent Fever Within 48 Hours No Sepsis New/Unexplained Change in Mental Status No Sepsis Action Taken by Nursing No Action Required VITAL SIGNS - Vital signs and triage nursing notes were reviewed. Stable and afebrile. GENERAL -62-year-old male appearing his stated age who is in no acute distress. Communicates well with provider and answers questions appropriately. SKIN -the patient has diffuse erythema and edema to the right lower extremity from the right ankle to the right knee. There is a small scabbed region to the distal right first toe. There are no open wounds. No purulence or drainage at this time. No deformity. The erythema does not track proximal to the knee. There is no lymphangitic streaking appreciable proximal to the knee at this time. This is markedly asymmetric compared to the left leg. HEAD - NC/AT. EYES - Sclera anicteric. EARS - No deformities of external structures noted on gross examination bilaterally. MOUTH/OROPHARYNX - Without perioral cyanosis. Buccal mucosa pink and moist and without leukoplakia. LUNGS - Chest wall symmetric without accessory muscle use, intercostals retractions, or central cyanosis. Normal vesicular breath sounds CTA B/L. No wheezes, rales, or rhonchi appreciated. CARDIAC - RRR with S1/S2. No murmur, rubs, or gallops appreciated. . EXTREMITIES - No clubbing or peripheral cyanosis. Skin as above. There is tenderness palpation overlying the patient's right lower extremity from the right ankle to right knee. Patient appropriately warm and well-perfused at the right lower extremity. +5/5 strength noted in UE/LE bilaterally. NEUROLOGIC -patient sensory intact throughout the right lower extremity without deficit. PSYCH - A&O, and cooperates fully with examiner. Pt is very pleasant and interacts well with examiner. Course Administered Medications Acetaminophen (Acetaminophen 500 Mg Tab) 1,000 mg PO Q8H PRN PRN Reason: pain/fever Stop: 11/13/22 16:23 Last Admin: 10/15/22 01:20 Dose: 1,000 mg Documented By: Admin: 10/14/22 17:23 Dose: 1,000 mg Documented By: AURELIO Apixaban (Apixaban 5 Mg Tablet) 5 mg PO BID PHUONG Stop: 11/13/22 20:59 Last Admin: 10/14/22 19:40 Dose: 5 mg Documented By: DENNYS Digoxin (Digoxin 0.25 Mg Tab) 0.25 mg PO QPM PHUONG Stop: 11/13/22 20:59 Last Admin: 10/14/22 19:40 Dose: 0.25 mg Documented By: DENNYS Vancomycin HCl 1,250 mg/ (Sodium Chloride) 275 mls @ 200 mls/hr IV Q12H PHUONG; Protocol Stop: 10/21/22 18:59 Last Admin: 10/15/22 06:14 Dose: 200 mls/hr Documented By: Infusion: 10/14/22 21:11 Dose: 0 mls/hr Documented By: Admin: 10/14/22 19:27 Dose: 200 mls/hr Documented By: DENNYS Metoprolol Succinate (Metoprolol Succ 50mg Ext Rel Tab) 100 mg PO BID PHUONG Stop: 11/13/22 20:59 Last Admin: 10/14/22 19:41 Dose: 100 mg Documented By: DENNYS Torsemide (Torsemide 20 Mg Tab) 40 mg PO BID17 PHUONG Stop: 11/13/22 16:59 Last Admin: 10/14/22 17:24 Dose: Not Given Documented By: AURELIO Discontinued Medications Cefepime HCl (Maxipime) 2,000 mg in 20 mls @ 5 mls/min IV NOW STA; Protocol Stop: 10/14/22 11:49 Last Admin: 10/14/22 12:16 Dose: 5 mls/min Documented By: SALVATORE Vancomycin HCl 2,000 mg/ (Sodium Chloride) 540 mls @ 200 mls/hr IV NOW ONE Stop: 10/14/22 14:27 Last Admin: 10/14/22 12:55 Dose: 200 mls/hr Documented By: SALVATORE Cefepime HCl 2,000 mg/ Syringe 20 mls @ 5 mls/min IV NOW ONE; Protocol Stop: 10/14/22 21:03 Last Admin: 10/14/22 21:12 Dose: 5 mls/min Documented By: DENNYS Ioversol (Optiray 320 100ml) 90 ml IV ONCE ONE Stop: 10/14/22 13:17 Last Admin: 10/14/22 13:16 Dose: 90 ml Documented By: OZZY Medical Decision Making Laboratory Data 10/14/22 12:11 10/14/22 12:11 Lab Results 10/14/22 10/14/22 10/14/22 Range/Units 12:10 12:11 12:11 WBC 14.19 H (4.8-10.8) K/ul RBC 4.12 L (4.70-6.10) M/uL Hgb 13.0 L (14.0-18.0) g/dl Hct 38.9 L (42.0-52.0) % MCV 94.4 (80.0-100.0) fL MCH 31.6 (25.0-34.0) pg MCHC 33.4 (32.0-36.0) g/dL RDW Std Deviation 44.6 (36.4-46.3) fL RDW Coeff of Janell 12.9 (11.5-14.5) % Plt Count 141 (130-400) K/uL MPV 10.6 (9.4-12.4) fL Immature Gran % (Auto) 1.2 % Neut % (Auto) 85.4 % Lymph % (Auto) 6.6 % Runnels % (Auto) 5.7 % Eos % (Auto) 0.8 % Baso % (Auto) 0.3 % Neut # (Auto) 12.13 H (1.40-6.50) K/uL Lymph # (Auto) 0.93 L (1.2-3.4) K/uL Runnels # (Auto) 0.81 H (0.11-0.59) K/uL Eos # (Auto) 0.11 (0-0.50) K/uL Baso # (Auto) 0.04 (0-0.2) K/uL Immature Gran # (Auto) 0.17 (0.01-0.20) K/uL ESR (0-20) mm/hr PT (9.0-12.0) Seconds INR (0.9-1.1) APTT (21.0-31.0) Seconds PTT Ratio Sodium (136-145) mmol/L Potassium (3.5-5.1) mmol/L Chloride (98-107) mmol/L Carbon Dioxide (21-32) mmol/L Anion Gap (3-11) BUN (6-23) mg/dl Creatinine (0.6-1.4) mg/dl Est Cr Clr Drug Dosing ml/min Est GFR ( Amer) ml/min Est GFR (Non-Af Amer) ml/min BUN/Creatinine Ratio (10-20) Glucose (70-99(Fasting)) mg/dl Lactate 2.0 (0.4-2.0) mmol/L Uric Acid (2.6-7.2) mg/dl Calcium (8.6-10.3) mg/dl Total Bilirubin (0.2-1.0) mg/dl AST (13-39) U/L ALT (7-52) U/L Alkaline Phosphatase (34-104) U/L C-Reactive Protein (0-0.5) mg/dl Total Protein (6.0-8.3) gm/dl Albumin (3.4-5.0) gm/dl Globulin (2.5-4.0) gm/dl Albumin/Globulin Ratio (0.9-2) Procalcitonin 0.43 (0-0.5) ng/ml Adenovirus (PCR) (NotDetected) B. pertussis DNA (PCR) (NotDetected) B.parapertussis DNA PCR (NotDetected) Lyme Disease IgG Ab Negative (Negative) Lyme Disease IgM Ab Equivocal A (Negative) C. pneumoniae DNA (PCR) (NotDetected) Coronavirus OC43 (PCR) (NotDetected) Coronavirus HKU1 (PCR) (NotDetected) Coronavirus 229E (PCR) (NotDetected) SARS-CoV-2 (PCR) (NotDetected) Coronavirus NL63 (PCR) (NotDetected) Human Metapneumovir PCR (NotDetected) Influenza Type A (PCR) (NotDetected) Influenza Type B (PCR) (NotDetected) M. pneumoniae (PCR) (NotDetected) Parainfluenza 1 (PCR) (NotDetected) Parainfluenza 2 (PCR) (NotDetected) Parainfluenza 3 (PCR) (NotDetected) Parainfluenza 4 (PCR) (NotDetected) RSV (PCR) (NotDetected) Entero/Rhino (PCR) (NotDetected) 10/14/22 10/14/22 10/14/22 Range/Units 12:11 12:11 12:11 WBC (4.8-10.8) K/ul RBC (4.70-6.10) M/uL Hgb (14.0-18.0) g/dl Hct (42.0-52.0) % MCV (80.0-100.0) fL MCH (25.0-34.0) pg MCHC (32.0-36.0) g/dL RDW Std Deviation (36.4-46.3) fL RDW Coeff of Janell (11.5-14.5) % Plt Count (130-400) K/uL MPV (9.4-12.4) fL Immature Gran % (Auto) % Neut % (Auto) % Lymph % (Auto) % Runnels % (Auto) % Eos % (Auto) % Baso % (Auto) % Neut # (Auto) (1.40-6.50) K/uL Lymph # (Auto) (1.2-3.4) K/uL Runnels # (Auto) (0.11-0.59) K/uL Eos # (Auto) (0-0.50) K/uL Baso # (Auto) (0-0.2) K/uL Immature Gran # (Auto) (0.01-0.20) K/uL ESR 57 H (0-20) mm/hr PT 13.4 H (9.0-12.0) Seconds INR 1.2 H (0.9-1.1) APTT 34.3 H (21.0-31.0) Seconds PTT Ratio 1.2 Sodium 135 L (136-145) mmol/L Potassium 4.0 (3.5-5.1) mmol/L Chloride 98 (98-107) mmol/L Carbon Dioxide 31 (21-32) mmol/L Anion Gap 6 (3-11) BUN 15 (6-23) mg/dl Creatinine 0.93 (0.6-1.4) mg/dl Est Cr Clr Drug Dosing 101.4 ml/min Est GFR ( Amer) 100.2 ml/min Est GFR (Non-Af Amer) 86.5 ml/min BUN/Creatinine Ratio 16.1 (10-20) Glucose 176 H (70-99(Fasting)) mg/dl Lactate (0.4-2.0) mmol/L Uric Acid 5.5 (2.6-7.2) mg/dl Calcium 8.7 (8.6-10.3) mg/dl Total Bilirubin 1.7 H (0.2-1.0) mg/dl AST 39 (13-39) U/L ALT 34 (7-52) U/L Alkaline Phosphatase 83 (34-104) U/L C-Reactive Protein 24.40 H (0-0.5) mg/dl Total Protein 6.9 (6.0-8.3) gm/dl Albumin 3.4 (3.4-5.0) gm/dl Globulin 3.5 (2.5-4.0) gm/dl Albumin/Globulin Ratio 1.0 (0.9-2) Procalcitonin (0-0.5) ng/ml Adenovirus (PCR) (NotDetected) B. pertussis DNA (PCR) (NotDetected) B.parapertussis DNA PCR (NotDetected) Lyme Disease IgG Ab (Negative) Lyme Disease IgM Ab (Negative) C. pneumoniae DNA (PCR) (NotDetected) Coronavirus OC43 (PCR) (NotDetected) Coronavirus HKU1 (PCR) (NotDetected) Coronavirus 229E (PCR) (NotDetected) SARS-CoV-2 (PCR) (NotDetected) Coronavirus NL63 (PCR) (NotDetected) Human Metapneumovir PCR (NotDetected) Influenza Type A (PCR) (NotDetected) Influenza Type B (PCR) (NotDetected) M. pneumoniae (PCR) (NotDetected) Parainfluenza 1 (PCR) (NotDetected) Parainfluenza 2 (PCR) (NotDetected) Parainfluenza 3 (PCR) (NotDetected) Parainfluenza 4 (PCR) (NotDetected) RSV (PCR) (NotDetected) Entero/Rhino (PCR) (NotDetected) 10/14/22 Range/Units 12:28 WBC (4.8-10.8) K/ul RBC (4.70-6.10) M/uL Hgb (14.0-18.0) g/dl Hct (42.0-52.0) % MCV (80.0-100.0) fL MCH (25.0-34.0) pg MCHC (32.0-36.0) g/dL RDW Std Deviation (36.4-46.3) fL RDW Coeff of Janell (11.5-14.5) % Plt Count (130-400) K/uL MPV (9.4-12.4) fL Immature Gran % (Auto) % Neut % (Auto) % Lymph % (Auto) % Runnels % (Auto) % Eos % (Auto) % Baso % (Auto) % Neut # (Auto) (1.40-6.50) K/uL Lymph # (Auto) (1.2-3.4) K/uL Runnels # (Auto) (0.11-0.59) K/uL Eos # (Auto) (0-0.50) K/uL Baso # (Auto) (0-0.2) K/uL Immature Gran # (Auto) (0.01-0.20) K/uL ESR (0-20) mm/hr PT (9.0-12.0) Seconds INR (0.9-1.1) APTT (21.0-31.0) Seconds PTT Ratio Sodium (136-145) mmol/L Potassium (3.5-5.1) mmol/L Chloride (98-107) mmol/L Carbon Dioxide (21-32) mmol/L Anion Gap (3-11) BUN (6-23) mg/dl Creatinine (0.6-1.4) mg/dl Est Cr Clr Drug Dosing ml/min Est GFR ( Amer) ml/min Est GFR (Non-Af Amer) ml/min BUN/Creatinine Ratio (10-20) Glucose (70-99(Fasting)) mg/dl Lactate (0.4-2.0) mmol/L Uric Acid (2.6-7.2) mg/dl Calcium (8.6-10.3) mg/dl Total Bilirubin (0.2-1.0) mg/dl AST (13-39) U/L ALT (7-52) U/L Alkaline Phosphatase (34-104) U/L C-Reactive Protein (0-0.5) mg/dl Total Protein (6.0-8.3) gm/dl Albumin (3.4-5.0) gm/dl Globulin (2.5-4.0) gm/dl Albumin/Globulin Ratio (0.9-2) Procalcitonin (0-0.5) ng/ml Adenovirus (PCR) Not Detected (NotDetected) B. pertussis DNA (PCR) Not Detected (NotDetected) B.parapertussis DNA PCR Not Detected (NotDetected) Lyme Disease IgG Ab (Negative) Lyme Disease IgM Ab (Negative) C. pneumoniae DNA (PCR) Not Detected (NotDetected) Coronavirus OC43 (PCR) Not Detected (NotDetected) Coronavirus HKU1 (PCR) Not Detected (NotDetected) Coronavirus 229E (PCR) Not Detected (NotDetected) SARS-CoV-2 (PCR) Not Detected (NotDetected) Coronavirus NL63 (PCR) Not Detected (NotDetected) Human Metapneumovir PCR Not Detected (NotDetected) Influenza Type A (PCR) Not Detected (NotDetected) Influenza Type B (PCR) Not Detected (NotDetected) M. pneumoniae (PCR) Not Detected (NotDetected) Parainfluenza 1 (PCR) Not Detected (NotDetected) Parainfluenza 2 (PCR) Not Detected (NotDetected) Parainfluenza 3 (PCR) Not Detected (NotDetected) Parainfluenza 4 (PCR) Not Detected (NotDetected) RSV (PCR) Not Detected (NotDetected) Entero/Rhino (PCR) Not Detected (NotDetected) Imaging Data Radiologist's Impression: CT foot RT w con, CT tib/fib RT w con CLINICAL HISTORY: R leg pain, erythema and edema TECHNIQUE: Multidetector row helical CT of the right tibia and fibula and right foot was performed without intravenous contrast. Coronal and sagittal reformations were obtained. Automated dose lowering techniques and/or adjustment according to patient size were utilized for this examination. CT DOSE: 402.28 mGy.cm Comparison: None available at the time of this dictation. FINDINGS: The osseous structures are without fracture or dislocation. Degenerative changes are seen with joint space narrowing, osteophyte formation and subchondral cyst formation. No joint effusion is seen. Soft tissue swelling is seen. IMPRESSION: Extensive degenerative changes are seen. Soft tissue swelling is seen without evidence of underlying erosions to suggest osteomyelitis. ACT 112: Negative or not required by law. Electronically signed by: Brock Kahn M.D. 10/14/2022 1:32 PM US venous doppler LE RT CLINICAL HISTORY: R leg pain and edema TECHNIQUE: Right lower extremity real-time compression venous ultrasound with Color Doppler imaging. Utilizing real-time ultrasonic imaging multiple real time high-resolution ultrasonic images with compression and noncompression maneuvers of the deep venous system in addition to color doppler imaging were performed from the common femoral vein through the proximal calf veins. COMPARISON: None available at the time of this dictation. FINDINGS/IMPRESSION: Currently there is normal compressibility of the deep venous system from the common femoral vein through the proximal calf veins. Soft tissue swelling/edema is seen most prominent in the calf. ACT 112: Negative or not required by law. Electronically signed by: Brock Kahn M.D. 10/14/2022 1:45 PM MDM Narrative Patient was seen and evaluated as above in room B11. Review was performed of triage nursing notes and vital signs. I did review the patient's most recent PCP visit in the EMR. After obtaining a thorough history and physical examination the above work up was performed. Patient presents to us today with progressive worsening of erythema and edema to the right lower extremity predominantly from the right knee to the right ankle. The patient's right lower extremity has significant edema and erythema which at this time is highly suspicious for cellulitis given the patient's systemic symptoms despite appropriate antibiotic therapy. I will note that the erythema and edema to the right lower extremity is markedly asymmetric compared to the left. Patient notes that this finding is new and he does not chronically have erythema and edema to the right lower extremity. Options of care were discussed with the patient. Labs reveal mild leukocytosis. No emergent metabolic disturbance. Elevation of ESR and CRP noted. Pro-Sonido 0.43. Bio fire panel negative. Equivocal Lyme noted. CT scan was obtained of the right tib/fib as well as right foot. No abscesses. No air/gas. No DVT by ultrasound. Empiric cefepime and vancomycin ordered. At this time I do believe that further evaluation and management in the inpatient setting is warranted for cellulitis of the right lower extremity. Blood cultures pending. There are no wounds to culture at this time. Patient amenable to plan of care and inpatient management. Case discussed with the hospitalist service. Please refer to further documentation regarding his stay. Case discussed with the attending physician. GCS: 15 In the evaluation and treatment of this patient the following differential diagnoses were entertained: Cellulitis, necrotizing fasciitis, abscess, DVT, cerulea dolens, among others. Impression & Plan Cellulitis of leg, right Discharge Plan Visit Data Chief Complaint: Skin Problem Stated Complaint: CELLULITIS ON R LEG ED Provider: Barry Araya ED Midlevel Provider: Mamadou Rapp Discharge Problem: Cellulitis of leg, right Patient Disposition: Admitted As Inpatient Discharge Instructions Interventions: ED Discharge Assessment Last Done: 10/14/22 15:49
[2022-10-14 12:19] LABS: Basophils # (auto) 0.04 K/uL (0-0.2); Basophils % (auto) 0.3 %; Eosinophils # (auto) 0.11 K/uL (0-0.50); Eosinophils % (auto) 0.8 %; Hematocrit (blood only) 38.9 % (42.0-52.0); Immature Granulocytes # (auto) 0.17 K/uL (0.01-0.20); Immature Granulocytes % (auto) 1.2 %; Lymphocytes # (auto) 0.93 K/uL (1.2-3.4); Lymphocytes % (auto) 6.6 %; Mean Corpuscular Hemoglobin 31.6 pg (25.0-34.0); Mean Corpuscular Hgb Conc 33.4 g/dL (32.0-36.0); Mean Corpuscular Volume 94.4 fL (80.0-100.0); Mean Platelet Volume 10.6 fL (9.4-12.4); Monocytes # (auto) 0.81 K/uL (0.11-0.59); Monocytes % (auto) 5.7 %; Neutrophils # (auto) 12.13 K/uL (1.40-6.50); Neutrophils % (auto) 85.4 %; Platelet Count 141 K/uL (130-400); RDW Coefficient of Variation 12.9 % (11.5-14.5); RDW Standard Deviation 44.6 fL (36.4-46.3); Red Blood Count 4.12 M/uL (4.70-6.10); White Blood Count 14.19 K/ul (4.8-10.8)
[2022-10-14 12:35] LABS: Albumin Level 3.4 gm/dl (3.4-5.0); BUN Creatinine Ratio 16.1 (10-20); Bilirubin,Total 1.7 mg/dl (0.2-1.0); C Reactive Protein 24.4 mg/dl (0-0.5); Calcium 8.7 mg/dl (8.6-10.3); Creatinine Clr Calc Pharmacy 101.4 ml/min; Est GFR (African American) 100.2 ml/min; Est GFR (Non-African American) 86.5 ml/min; Globulin 3.5 gm/dl (2.5-4.0); Total Protein 6.9 gm/dl (6.0-8.3); Uric Acid 5.5 mg/dl (2.6-7.2)
[2022-10-14 12:44] LABS: INR 1.2 (0.9-1.1); Partial Thromboplastin Ratio 1.2; Partial Thromboplastin Time 34.3 Seconds (21.0-31.0); Prothrombin Time 13.4 Seconds (9.0-12.0)
[2022-10-14 12:57] LABS: Procalcitonin 0.43 ng/ml (0-0.5)
[2022-10-14 13:05] LABS: Lyme Ab IgG w/WB Rflx Negative (Negative)
[2022-10-14 13:09] LABS: Lyme Ab IgM w/WB Rflx Equivocal (Negative)
[2022-10-14] MEDS ORDERED: OPTIRAY 320 100ml IV ONE (13:16)
[2022-10-14 13:27] LABS: Adenovirus PCR Not Detected (NotDetected); Bordetella parapertussis PCR Not Detected (NotDetected); Bordetella pertussis PCR Not Detected (NotDetected); Chlamydia pneumoniae PCR Not Detected (NotDetected); Coronavirus 229E PCR Not Detected (NotDetected); Coronavirus CoV-2 (COVID19)PCR Not Detected (NotDetected); Coronavirus HKU1 PCR Not Detected (NotDetected); Coronavirus NL63 PCR Not Detected (NotDetected); Coronavirus OC43PCR Not Detected (NotDetected); Human Metapneumovirus PCR Not Detected (NotDetected); Influenza A PCR Not Detected (NotDetected); Influenza B PCR Not Detected (NotDetected); Mycoplasma pneumoniae PCR Not Detected (NotDetected); Parainfluenza Virus 1 PCR Not Detected (NotDetected); Parainfluenza Virus 2 PCR Not Detected (NotDetected); Parainfluenza Virus 3 PCR Not Detected (NotDetected); Parainfluenza Virus 4 PCR Not Detected (NotDetected); Respiratory Syncytial VirusPCR Not Detected (NotDetected); Rhinovirus/Enterovirus PCR Not Detected (NotDetected)
--- NOTE | 2022-10-14 13:34 | CT Scan Report ---
CT foot RT w con, CT tib/fib RT w con CLINICAL HISTORY: R leg pain, erythema and edema TECHNIQUE: Multidetector row helical CT of the right tibia and fibula and right foot was performed wi thout intravenous contrast. Coronal and sagittal reformations were obtained. Automated dose lowering techniques and/or adjustment according to patient size were utilized for this examination. CT DOSE: 402.28 mGy.cm Comparison: None available at the time of this dictation. FINDINGS: The osseous structures are without fracture or dislocation. Degenerative changes are seen with joint space narrowing, osteophyte formation and subchondral cyst formation. No joint effusion is seen. Sof t tissue swelling is seen. IMPRESSION: Extensive degenerative changes are seen. Soft tissue swelling is seen without evidence of underlying erosions to suggest osteomyelitis. ACT 112: Negative or not required by law. Electronically signed by: Brock Kahn M.D. 10/14/2022 1:32 PM
--- NOTE | 2022-10-14 13:47 | Ultrasound Report ---
US venous doppler LE RT CLINICAL HISTORY: R leg pain and edema TECHNIQUE: Right lower extremity real-time compression venous ultrasound with Color Doppler imaging. Utilizing real-time ultrasonic imaging multiple real time high-resolution ultrasonic images with comp ression and noncompression maneuvers of the deep venous system in addition to color doppler imaging w ere performed from the common femoral vein through the proximal calf veins. COMPARISON: None available at the time of this dictation. FINDINGS/IMPRESSION: Currently there is normal compressibility of the deep venous system from the common femoral vein thro ugh the proximal calf veins. Soft tissue swelling/edema is seen most prominent in the calf. ACT 112: Negative or not required by law. Electronically signed by: Brock Kahn M.D. 10/14/2022 1:45 PM
--- NOTE | 2022-10-14 15:00 | History & Physical Report ---
Date of Service October 14, 2022 Assessment & Plan (1) Cellulitis: Plan: Acute/unstable - moderate risk - Place in observation to med/surg unit - Blood cultures were collected prior to administration of IV abx - Will provide second dose of Cefepime 2g IV this evening and then de-escalate to Ceftriaxone starting tomorrow morning - Continue Vancomycin, consult to pharmacy to assist with dosing - No evidence of sepsis, appears euvolemic, no need for IV abx - Utilize skin marker to outlined area of involvement - APAP PRN fever/pain - Keep leg elevated (2) Leukocytosis: Plan: Acute/unstable - moderate risk - Secondary to acute cellulitis - CBC reviewed, WBC elevated at 14 with left shift - As noted blood cultures collected - IV abx, and trend with CBC in AM (3) Atrial fibrillation: Plan: Chronic/stable - Currently rate controlled - Continue Digoxin, Eliquis, and Metoprolol (4) HTN (hypertension): Plan: H/o HTN/HLD Chronic/stable - Continue Metoprolol, Spironolactone, Simvastatin (5) Heart failure with reduced ejection fraction: Plan: Chronic/stable - Follows with [facility] - Last echo on file from 2019, LVEF 40-44% - Continue Torsemide, Spironolactone, and supplemental potassium - Appears well compensated Plan DVT ppx will be covered with resumption of eliquis. AM labs have been ordered. Above plan of care has been d/w Dr. Stewart who will also see and evaluate this patient. Further orders will be implemented as warranted. History of Present Illness Chief Complaint: RLE redness/swelling Primary Care Provider: Emigdio Hamlin DO [place] Williamson is a 62 yo M with a pmhx of afib, HTN, HLD, HFrEF, AVR, and prostate CA s/p treatment who presents to the ER today c/o RLE redness/swelling worsening over the past 48 hours. Patient reports that last Saturday while at work, he began experiencing fever/chills. The fevers continued into the next day and he called to make an appointment with his PCP. He was seen in the office on and noticed at that time some mild redness involving his right leg below the knee. He admits that he was fly fishing a couple of weeks ago in [facility] and when stepping into the shower where he was staying, he cut his right great toe on the threshold. After being seen by the office, he was placed on empiric antibiotics (Amoxicillin 875mg BID) with concern for developing cellulitis. Despite taking this for the past 2 days, he notes that the redness in his right leg has gotten much worse. He has chronic swelling in this leg but the redness is was has been most concerning. He denies fevers since . No significant pain. In the ER today, his work up was notable for an elevated wbc count on cbc with a left shift and markedly elevated CRP of 24, and elevated ESR of 57. CT of his LE was completed which did not reveal underlying abscess or osteomyelitis. He was medicated with a dose of Vancomycin and Cefepime in the ER and referred to the hospitalist service for admission. Allergies Allergy/AdvReac Type Severity Reaction Status Date / Time dog dander Allergy Severe respiratory Verified 10/11/22 16:19 issues, eyes swell shut Home Medications Medication Instructions Recorded Confirmed Type apixaban 5 mg tablet (Eliquis) 5 mg PO BID 11/10/19 10/14/22 History aspirin 81 mg tablet,delayed 81 mg PO QAM 11/10/19 10/14/22 History release (Aspir-) digoxin 250 mcg (0.25 mg) tablet 250 mcg PO QPM 07/08/20 10/14/22 History spironolactone 25 mg tablet 25 mg PO QAM 07/08/20 10/14/22 History torsemide 20 mg tablet 40 mg PO BID 07/20/20 10/14/22 History metoprolol succinate 100 mg 100 mg PO BID 12/22/20 10/14/22 History tablet,extended release 24 hr potassium chloride 10 mEq 40 meq PO QAM 01/26/21 10/14/22 History tablet,extended release (Klor-Con) simvastatin 40 mg tablet 40 mg PO DAILY #90 tabs 09/25/21 10/14/22 Rx cholecalciferol (vitamin D3) 100 200 mcg PO DAILY 01/24/22 10/14/22 History mcg (4,000 unit) tablet sildenafil 100 mg tablet See Rx Instructions .Route 01/25/22 10/14/22 Rx .COMPLEX #30 tabs allopurinol 300 mg tablet 300 mg PO DAILY #90 tabs 07/13/22 10/14/22 Rx cetirizine 10 mg tablet (Zyrtec) 10 mg PO DAILY PRN Allergy Symptoms 08/23/22 10/14/22 History amoxicillin 875 mg tablet 875 mg PO BID #12 Tabs 10/11/22 10/14/22 Rx Past Med/Surg History Medical History Ascending aortic aneurysm Asthma stable, rare inhaler use Atrial fibrillation Bicuspid aortic valve Dyslipidemia HTN (hypertension) Lower back pain On anticoagulant therapy LING (obstructive sleep apnea) suspected Osteoarthritis Prostate cancer (07/23/19) Surgical History Biceps muscle tear 2014-surgical repair History of bunionectomy both on left & right foot mid History of cardiac cath 2009 PRIOR TO AVR-NO STENTS History of colonoscopy most recent 12/28/20 [facility], Repeat 10 yrs History of hip replacement left replaced in 2001, right hip resurfaced in 2011 History of prostate biopsy malignant History of prostate surgery (~11/25/19) transperineal brachytherapy Hx of aortic valve replacement (~2009) bovine AVR [facility] 01/2010 Family History Mother Diabetes Heart disease Myocardial infarction Father COPD (chronic obstructive pulmonary disease) Daughter No problems noted. Son No problems noted. Other No family history of adverse response to anesthesia Denies family history of Ovarian cancer Prostate cancer Breast cancer Colorectal cancer Social History Smoking Status: Never smoker Second Hand Exposure: No; Do You Dip or Chew Tobacco: No; Tobacco Cessation Education Requested by Patient: No Hx Alcohol Use: Yes Alcohol type: wine Alcohol Intake Frequency: 2-3 x/Week Alcohol Intake Frequency Comment: 3-4 daily 2-3 times a week. 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 AAOx4. NAD. LUNGS: Clear to auscultation bilaterally w/o W/R/R. CARDIOVASCULAR: Irregularly irregular rhythm with controlled rate and + murmur. No g/r EXTREMITIES: RLE with 2+ pitting edema and marked erythema extending from inferior knee and circumferentially to ankle. Toenails demonstrate thickening and yellowing c/w onychomycosis. Small pea size eschar noted on distal aspect of R hallux. No drainage or bleeding. Results & Data Results & Data Vital Signs (Past 12 Hours) Vital Signs Temp Pulse Pulse Resp BP BP Pulse Ox 10/14/22 13:47 84 16 147/84 H 96 10/14/22 12:26 98 10/14/22 11:23 36.8 C 91 H 18 129/85 97 O2 Del Method 10/14/22 13:47 Room Air 10/14/22 12:26 Room Air 10/14/22 11:23 Room Air Laboratory Results 10/14/22 12:11 10/14/22 12:11 Diagnostic Findings Venous Doppler Study 10/14/22 11:43 US venous doppler LE RT CLINICAL HISTORY: R leg pain and edema TECHNIQUE: Right lower extremity real-time compression venous ultrasound with Color Doppler imaging. Utilizing real-time ultrasonic imaging multiple real time high-resolution ultrasonic images with compression and noncompression maneuvers of the deep venous system in addition to color doppler imaging were performed from the common femoral vein through the proximal calf veins. COMPARISON: None available at the time of this dictation. FINDINGS/IMPRESSION: Currently there is normal compressibility of the deep venous system from the common femoral vein through the proximal calf veins. Soft tissue swelling/edema is seen most prominent in the calf. ACT 112: Negative or not required by law. Electronically signed by: Brock Kahn M.D. 10/14/2022 1:[address] 10/14/22 11:48 CT foot RT w con, CT tib/fib RT w con CLINICAL HISTORY: R leg pain, erythema and edema TECHNIQUE: Multidetector row helical CT of the right tibia and fibula and right foot was performed without intravenous contrast. Coronal and sagittal reformations were obtained. Automated dose lowering techniques and/or adjustment according to patient size were utilized for this examination. CT DOSE: 402.28 mGy.cm Comparison: None available at the time of this dictation. FINDINGS: The osseous structures are without fracture or dislocation. Degenerative changes are seen with joint space narrowing, osteophyte formation and subchondral cyst formation. No joint effusion is seen. Soft tissue swelling is seen. IMPRESSION: Extensive degenerative changes are seen. Soft tissue swelling is seen without evidence of underlying erosions to suggest osteomyelitis. ACT 112: Negative or not required by law. Electronically signed by: Brock Kahn M.D. 10/14/2022 1:[address] 10/14/22 11:48 CT foot RT w con, CT tib/fib RT w con CLINICAL HISTORY: R leg pain, erythema and edema TECHNIQUE: Multidetector row helical CT of the right tibia and fibula and right foot was performed without intravenous contrast. Coronal and sagittal reformations were obtained. Automated dose lowering techniques and/or adjustment according to patient size were utilized for this examination. CT DOSE: 402.28 mGy.cm Comparison: None available at the time of this dictation. FINDINGS: The osseous structures are without fracture or dislocation. Degenerative changes are seen with joint space narrowing, osteophyte formation and subchondral cyst formation. No joint effusion is seen. Soft tissue swelling is seen. IMPRESSION: Extensive degenerative changes are seen. Soft tissue swelling is seen without evidence of underlying erosions to suggest osteomyelitis. ACT 112: Negative or not required by law. Electronically signed by: Brock Kahn M.D. 10/14/2022 1:32 PM Code Status & VTE Plan Code Status discussed with patient, he voiced wishes to be a dnr/dni Supervising Physician Co-Signing Physician Notes I personally saw and examined the patient. I verified all franz points and agree with Lory Calixto PA-C with the following exceptions and/or additions: 62 year old male presents to the ER with progressive worsening erythema and swelling of his right leg despite amoxicillin use. O/E Irregular rhythm, systolic murmur, Chest CTAB, erythema and swelling of right lower extremity from knee to ankle with 2st toe skin breakdown around nail with swelling but no surrounding erythema around this. A/P Right lower extremity cellulitis - failed outpatient treatment with amoxicillin. ?started at 1st toe and likely would benefit with podiatry follow upStart ceftriaxone and vancomycin. Follow up blood cultures. Otherwise as above PG Care Time/CCT Total # of Minutes Spent Total Time Spent with Patient: Total time spent is greater than 50% in coordination of care (as documented) at patient's floor/unit and/or counseling patient: Coding Level of Care Code 54471 INT INP/OBS CARE 3/75MIN Diagnoses Cellulitis L03.90 Leukocytosis D72.829 Atrial fibrillation I48.91 HTN (hypertension) I10 Heart failure with reduced ejection fraction I50.20
[2022-10-14] MEDS ORDERED: MAGNESIUM HYDROXIDE SUSP 30 ML UDC PO PRN (16:24)
[2022-10-14] MEDS ORDERED: ONDANSETRON INJ 2 MG/ML 2 ML VIAL IV PRN (16:24)
[2022-10-14] MEDS ORDERED: POLYETHYLENE (MIRALAX) 17 GM PACK PO PRN (16:24)
[2022-10-14] MEDS ORDERED: ALUMINUM/MAGNESIUM SUSP 30 ML UDC PO PRN (16:24)
[2022-10-14] MEDS ORDERED: CEFEPIME 20 ML IV ONE (16:30)
[2022-10-14] MEDS: ACETAMINOPHEN 500 MG TAB PO PRN (17:23)
[2022-10-14] MEDS: TORSEMIDE 20 MG TAB PO SCH (17:24)
--- NOTE | 2022-10-14 17:24 | Pharmacy Report ---
Pharmacy Vanc AUC Short Note - Date of Service October 14, 2022 - Assessment & Plan Assessment 62 year old M receiving Vancomycin for treatment of cellulitis. First day of antimicrobial therapy: 10/14/22 Plan Vancomycin * Load: Vancomycin 2,000 mg IV once on 10/14/22 at 1255 * Maintenance: Vancomycin 1,250 mg IV q12h starting 10/14/22 at 1900 * AUC/CLAUDIA is the preferred PK/PD target for vancomycin * AUC guided dosing is effective and associated with decreased risk of nephrotoxicity compared to traditional trough targets * Trough level of 18.7 mcg/mL is predicted to achieve target AUC/CLAUDIA of 400-600 mg/L.hr and may be associated with a 15% risk of nephrotoxicity * Trough or random level ordered for: 10/16/22 with AM labs Pharmacy will continue to follow and will adjust dose/frequency as necessary. Thank you.
[2022-10-14] MEDS: VANCOMYCIN HCL 1,250 MG in SODIUM CHLORIDE 0.9% 250 ML IV SCH (19:27)
[2022-10-14] MEDS: DIGOXIN 0.25 MG TAB PO SCH (19:40)
[2022-10-14] MEDS: APIXABAN 5 MG TABLET PO SCH (19:40)
[2022-10-14] MEDS: METOPROLOL SUCC 50MG EXT REL TAB PO SCH (19:41)
[2022-10-14] MEDS ORDERED: CEFEPIME 2,000 MG in SYRINGE 0 ML IV ONE (21:00)
[2022-10-15] MEDS: ACETAMINOPHEN 500 MG TAB PO PRN ×2 (01:20→20:57)
[2022-10-15] MEDS: VANCOMYCIN HCL 1,250 MG in SODIUM CHLORIDE 0.9% 250 ML IV SCH ×2 (06:14→18:37)
[2022-10-15 07:17] LABS: Basophils # (auto) 0.03 K/uL (0-0.2); Basophils % (auto) 0.3 %; Eosinophils # (auto) 0.21 K/uL (0-0.50); Eosinophils % (auto) 2.1 %; Hematocrit (blood only) 35.5 % (42.0-52.0); Hemoglobin 11.8 g/dl (14.0-18.0); Immature Granulocytes # (auto) 0.11 K/uL (0.01-0.20); Immature Granulocytes % (auto) 1.1 %; Lymphocytes # (auto) 1.03 K/uL (1.2-3.4); Lymphocytes % (auto) 10.3 %; Mean Corpuscular Hemoglobin 31.8 pg (25.0-34.0); Mean Corpuscular Hgb Conc 33.2 g/dL (32.0-36.0); Mean Corpuscular Volume 95.7 fL (80.0-100.0); Mean Platelet Volume 10.8 fL (9.4-12.4); Monocytes # (auto) 0.68 K/uL (0.11-0.59); Monocytes % (auto) 6.8 %; Neutrophils # (auto) 7.96 K/uL (1.40-6.50); Neutrophils % (auto) 79.4 %; Platelet Count 148 K/uL (130-400); RDW Coefficient of Variation 12.9 % (11.5-14.5); RDW Standard Deviation 44.9 fL (36.4-46.3); Red Blood Count 3.71 M/uL (4.70-6.10); White Blood Count 10.02 K/ul (4.8-10.8)
[2022-10-15 07:24] LABS: BUN Creatinine Ratio 17.4 (10-20); Calcium 8.6 mg/dl (8.6-10.3); Creatinine Clr Calc Pharmacy 151.8 ml/min; Est GFR (African American) 116.3 ml/min; Est GFR (Non-African American) 100.3 ml/min; Magnesium 1.9 mg/dl (1.7-2.4); Potassium 3.6 mmol/L (3.5-5.1)
[2022-10-15] MEDS: METOPROLOL SUCC 50MG EXT REL TAB PO SCH ×2 (08:40→20:35)
[2022-10-15] MEDS: ASPIRIN 81 MG ECTAB PO SCH (08:41)
[2022-10-15] MEDS: SPIRONOLACTONE 25 MG TAB PO SCH (08:41)
[2022-10-15] MEDS: SIMVASTATIN 40 MG TAB PO SCH (08:41)
[2022-10-15] MEDS: POTASSIUM CHLORIDE CRTAB 20 MEQ TABCR PO SCH (08:41)
[2022-10-15] MEDS: allopurinoL 300 MG TAB PO SCH (08:41)
[2022-10-15] MEDS: APIXABAN 5 MG TABLET PO SCH ×2 (08:42→20:36)
[2022-10-15] MEDS: TORSEMIDE 20 MG TAB PO SCH ×3 (08:42→16:38)
[2022-10-15] MEDS: cefTRIAXone SODIUM 2,000 MG in DEXTROSE 5% 50 ML IV SCH (08:43)
[2022-10-15 08:44] LABS: Estimated Average Glucose 114 mg/dl; Hemoglobin A1C 5.6 % (4.5-5.6)
--- NOTE | 2022-10-15 13:05 | Hospitalist Progress Note ---
Date of Service October 15, 2022 Assessment & Plan (1) Cellulitis: Plan: Acute/unstable - moderate risk - Blood cultures were collected prior to administration of IV abx - NGTD - Received 2 doses of Cefepime 2g IV 10/14 and then de-escalated to Ceftriaxone this morning - Continue Vancomycin, consult to pharmacy to assist with dosing - No evidence of sepsis, appears euvolemic, no need for IV abx - APAP PRN fever/pain - Keep leg elevated (2) Leukocytosis: Plan: Acute/stable - resolved - Secondary to acute cellulitis - CBC reviewed, WBC elevated at 14 with left shift on admit, downtrended today to 10.0 - As noted blood cultures collected and without growth - Continue antibiotics and repeat CBC in AM (3) Atrial fibrillation: Plan: Chronic/stable - Currently rate controlled - Continue Digoxin, Eliquis, and Metoprolol (4) HTN (hypertension): Plan: H/o HTN/HLD Chronic/stable - Well controlled, continue Metoprolol, Spironolactone, Simvastatin (5) Heart failure with reduced ejection fraction: Plan: Chronic/stable - Follows with [facility] - Last echo on file from 2019, LVEF 40-44% - Continue Torsemide, Spironolactone, and supplemental potassium - Appears well compensated Plan Believe pt would benefit from another day of IV abx. CBC ordered for tomorrow. Observe for fever. Possible discharge home tomorrow with transition to oral abx to complete for at least total of 10 day duration as outpatient. Will d/w Dr. Hartmann. Admission and Anticipated Discharge Date Admission Date: October 14, 2022 Subjective Patient seen on daily rounds this morning. He is resting comfortably in bed. Feels that area of redness has receded and is not as hot. Swelling not drastically changed. No fever, chills, cp, or dyspnea. Physical Exam Physical Exam: GENERAL: 62 yo Well-developed, well-nourished M. AAOx4. NAD. LUNGS: Clear to auscultation bilaterally w/o W/R/R. CARDIOVASCULAR: Irregularly irregular rhythm with controlled rate and + murmur. No g/r EXTREMITIES: RLE with 2-3+ pitting edema and erythema extending from inferior knee and circumferentially to ankle with some receding noted from demarcated o utline. Toenails demonstrate thickening and yellowing c/w onychomycosis. Small pea size eschar noted on distal aspect of R hallux. No drainage or bleeding. Results & Data Results & Data Vital Signs (Past 12 Hours) Vital Signs Temp Pulse Resp BP Pulse Ox O2 Del Method 10/15/22 07:18 36.9 C 79 16 131/82 95 Room Air Laboratory Results 10/15/22 06:20 10/15/22 06:20 PG Care Time/CCT Total # of Minutes Spent Total Time Spent with Patient: Total time spent is greater than 50% in coordination of care (as documented) at patient's floor/unit and/or counseling patient: Coding Level of Care Code 06268 SUB INP/OBS CARE 2/35MIN Diagnoses Cellulitis L03.90 Leukocytosis D72.829 Atrial fibrillation I48.91 HTN (hypertension) I10 Heart failure with reduced ejection fraction I50.20
[2022-10-15] MEDS ORDERED: cefTRIAXone SODIUM 1,000 MG in DEXTROSE 5% 50 ML IV SCH (16:15)
[2022-10-15] MEDS: DIGOXIN 0.25 MG TAB PO SCH (20:35)
[2022-10-16] MEDS: VANCOMYCIN HCL 1,250 MG in SODIUM CHLORIDE 0.9% 250 ML IV SCH (06:18)
[2022-10-16 07:53] VITALS: BP 137/80; PULSE 72; TEMP 97.5; O2SAT 94
[2022-10-16 08:09] LABS: Basophils # (auto) 0.03 K/uL (0-0.2); Basophils % (auto) 0.3 %; Eosinophils # (auto) 0.16 K/uL (0-0.50); Eosinophils % (auto) 1.8 %; Hematocrit (blood only) 36.2 % (42.0-52.0); Immature Granulocytes # (auto) 0.06 K/uL (0.01-0.20); Immature Granulocytes % (auto) 0.7 %; Lymphocytes % (auto) 10.1 %; Mean Corpuscular Hemoglobin 31.4 pg (25.0-34.0); Mean Corpuscular Hgb Conc 33.1 g/dL (32.0-36.0); Mean Corpuscular Volume 94.8 fL (80.0-100.0); Mean Platelet Volume 10.3 fL (9.4-12.4); Monocytes # (auto) 0.58 K/uL (0.11-0.59); Monocytes % (auto) 6.5 %; Neutrophils # (auto) 7.19 K/uL (1.40-6.50); Neutrophils % (auto) 80.6 %; Platelet Count 181 K/uL (130-400); RDW Coefficient of Variation 12.8 % (11.5-14.5); RDW Standard Deviation 44.4 fL (36.4-46.3); Red Blood Count 3.82 M/uL (4.70-6.10); White Blood Count 8.92 K/ul (4.8-10.8)
[2022-10-16 08:32] LABS: Creatinine Clr Calc Pharmacy 151.8 ml/min; Est GFR (African American) 116.3 ml/min; Est GFR (Non-African American) 100.3 ml/min
[2022-10-16] MEDS: cefTRIAXone SODIUM 2,000 MG in DEXTROSE 5% 50 ML IV SCH (08:56)
[2022-10-16] MEDS: POTASSIUM CHLORIDE CRTAB 20 MEQ TABCR PO SCH (08:57)
[2022-10-16] MEDS: APIXABAN 5 MG TABLET PO SCH (08:57)
[2022-10-16] MEDS: TORSEMIDE 20 MG TAB PO SCH (08:57)
[2022-10-16] MEDS: SPIRONOLACTONE 25 MG TAB PO SCH (08:58)
[2022-10-16] MEDS: allopurinoL 300 MG TAB PO SCH (08:58)
[2022-10-16] MEDS: METOPROLOL SUCC 50MG EXT REL TAB PO SCH (08:58)
[2022-10-16] MEDS: SIMVASTATIN 40 MG TAB PO SCH (08:58)
[2022-10-16] MEDS: ASPIRIN 81 MG ECTAB PO SCH (08:58)
--- NOTE | 2022-10-16 16:55 | Discharge Summary ---
Date of Service October 16, 2022 Admission HPI Per Admitting Provider Washington Williamson is a 62 yo M with a pmhx of afib, HTN, HLD, HFrEF, AVR, and prostate CA s/p treatment who presents to the ER today c/o RLE redness/swelling worsening over the past 48 hours. Patient reports that last Saturday while at work, he began experiencing fever/chills. The fevers continued into the next day and he called to make an appointment with his PCP. He was seen in the office on and noticed at that time some mild redness involving his right leg below the knee. He admits that he was fly fishing a couple of weeks ago in [facility] and when stepping into the shower where he was staying, he cut his r ight great toe on the threshold. After being seen by the office, he was placed on empiric antibiotics (Amoxicillin 875mg BID) with concern for developing cellulitis. Despite taking this for the past 2 days, he notes that the redness in his right leg has gotten much worse. He has chronic swelling in this leg but the redness is was has been most concerning. He denies fevers since . No significant pain. In the ER today, his work up was notable for an elevated wbc count on cbc with a left shift and markedly elevated CRP of 24, and elevated ESR of 57. CT of his LE was completed which did not reveal underlying abscess or osteomyelitis. He was medicated with a dose of Vancomycin and Cefepime in the ER and referred to the hospitalist service for admission. Principal Diagnosis Right lower extremity cellulitis Discharge Exam Colitis is still fairly red however the margins are receding with some blotchiness. There is lack of capillary refill in the center are blanching in the center of the red area which likely suggest this will be more chronic from the edges which are blanching and how improving Discharge Data Allergies Allergy/AdvReac Type Severity Reaction Status Date / Time dog dander Allergy Severe respiratory Verified 10/11/22 16:19 issues, eyes swell shut Consultations 10/14/22 14:06 ED Decision to Admit Stat Ordered Studies Venous Doppler Study 10/14/22 11:43 US venous doppler LE RT CLINICAL HISTORY: R leg pain and edema TECHNIQUE: Right lower extremity real-time compression venous ultrasound with Color Doppler imaging. Utilizing real-time ultrasonic imaging multiple real time high-resolution ultrasonic images with compression and noncompression maneuvers of the deep venous system in addition to color doppler imaging were performed from the common femoral vein through the proximal calf veins. COMPARISON: None available at the time of this dictation. FINDINGS/IMPRESSION: Currently there is normal compressibility of the deep venous system from the common femoral vein through the proximal calf veins. Soft tissue swelling/edema is seen most prominent in the calf. ACT 112: Negative or not required by law. Electronically signed by: Brock Kahn M.D. 10/14/2022 1:[address] 10/14/22 11:48 CT foot RT w con, CT tib/fib RT w con CLINICAL HISTORY: R leg pain, erythema and edema TECHNIQUE: Multidetector row helical CT of the right tibia and fibula and right foot was performed without intravenous contrast. Coronal and sagittal reformations were obtained. Automated dose lowering techniques and/or adjustment according to patient size were utilized for this examination. CT DOSE: 402.28 mGy.cm Comparison: None available at the time of this dictation. FINDINGS: The osseous structures are without fracture or dislocation. Degenerative changes are seen with joint space narrowing, osteophyte formation and subchondral cyst formation. No joint effusion is seen. Soft tissue swelling is seen. IMPRESSION: Extensive degenerative changes are seen. Soft tissue swelling is seen without evidence of underlying erosions to suggest osteomyelitis. ACT 112: Negative or not required by law. Electronically signed by: Brock Kahn M.D. 10/14/2022 1:[address] 10/14/22 11:48 CT foot RT w con, CT tib/fib RT w con CLINICAL HISTORY: R leg pain, erythema and edema TECHNIQUE: Multidetector row helical CT of the right tibia and fibula and right foot was performed without intravenous contrast. Coronal and sagittal reformations were obtained. Automated dose lowering techniques and/or adjustment according to patient size were utilized for this examination. CT DOSE: 402.28 mGy.cm Comparison: None available at the time of this dictation. FINDINGS: The osseous structures are without fracture or dislocation. Degenerative changes are seen with joint space narrowing, osteophyte formation and subchondral cyst formation. No joint effusion is seen. Soft tissue swelling is seen. IMPRESSION: Extensive degenerative changes are seen. Soft tissue swelling is seen without evidence of underlying erosions to suggest osteomyelitis. ACT 112: Negative or not required by law. Electronically signed by: Brock Kahn M.D. 10/14/2022 1:32 PM on] Stat Hospital Course (1) Cellulitis: Acute/improved - Blood cultures were collected prior to administration of IV abx - NGTD - Received 2 doses of Cefepime 2g IV 10/14 and then de-escalated to Ceftriaxone this morning -Patient will be discharged on linezolid 600 twice daily for 10 additional days most likely infectious etiology being gram-positive organisms - No evidence of sepsis, appears euvolemic, no need for IV abx - (2) Leukocytosis: Improved (3) Atrial fibrillation: Chronic/stable - Currently rate controlled - Continue Digoxin, Eliquis, and Metoprolol (4) HTN (hypertension): H/o HTN/HLD Chronic/stable - Well controlled, continue Metoprolol, Spironolactone, Simvastatin (5) Heart failure with reduced ejection fraction: Chronic/stable - [facility] - Last echo on file from 2019, LVEF 40-44% - Continue Torsemide, Spironolactone, and supplemental potassium - Appears well compensated Total Time Total Time Spent Total Time Spent (In Minutes): It required greater than 30 minutes to prepare this patient for discharge Discharge Plan Discharge Items Patient Disposition: Home - Self-Care Reason For Visit: CELLULITIS ON R LEG Discharge Diagnosis: cellulitis right leg Activity: Per Instructions section Activity Comment: Keep leg elevated Non-emergency contact: Primary Care Provider Call non-emergency contact if: your symptoms worsen Follow-up/Referrals: Emigdio Hamlin DO [Primary Care Provider] - 10/22/22 11:30 am (Appointment will be at [facility] location) Diet: Regular Addtl Attending Provider Instructions: elevate leg as much as possible take antibiotics as prescribed follow up with your pcp as scheduled Pending Studies at Discharge: No Stand-Alone Forms: My [employer], Smoking Cessation Medications and DC Order Prescriptions: New linezolid [Zyvox] 600 mg tablet 600 mg PO BID 10 Days Qty: 20 0RF Continued cholecalciferol (vitamin D3) 100 mcg (4,000 unit) tablet 200 mcg PO DAILY digoxin 250 mcg (0.25 mg) tablet 250 mcg PO QPM sildenafil 100 mg tablet See Rx Instructions .ROUTE .COMPLEX Qty: 30 6RF Dose Instruction: TAKE 1 TABLET BY MOUTH 1 HOUR PRIOR TO SEXUAL ACTIVITY NEEDED Rx Instructions: TAKE 1 TABLET BY MOUTH 1 HOUR PRIOR TO SEXUAL ACTIVITY NEEDED allopurinol 300 mg tablet 300 mg PO DAILY Qty: 90 3RF spironolactone 25 mg tablet 25 mg PO QAM cetirizine [Zyrtec] 10 mg tablet 10 mg PO DAILY PRN (Reason: Allergy Symptoms) torsemide 20 mg tablet 40 mg PO BID Rx Instructions: 2 tabs am& 2 tabs pm aspirin [Aspir-81] 81 mg Tablet,Delayed Release (Dr/Ec) 81 mg PO QAM Eliquis 5 mg Tablet 5 mg PO BID potassium chloride [Klor-Con 10] 10 mEq tablet extended release 40 meq PO QAM metoprolol succinate 100 mg Tablet Extended Release 24 Hr 100 mg PO BID Held simvastatin 40 mg tablet 40 mg PO DAILY Qty: 90 3RF Hold Instructions: Resume on 10/27/22. Discontinued amoxicillin 875 mg tablet 875 mg PO BID Qty: 12 0RF Discharge Orders: Discharge Order (Routine); Ordered 10/16/22 Ordered By: Buddy Case/Other Patient Handouts: Cellulitis Dc, ED Cellulitis Admission Data Admit Date/Time: 10/14/22 14:46 Attending Provider: Buddy Hartmann Admit Provider: Silas Stewart Primary Care Provider: Emigdio Hamlin Other Providers: Silas Stewart Other Interventions: Discharge Summary Assessment (RN) Last Done: 10/16/22 11:25 Coding Level of Care Code 80038 INP/OBS DISCH >30 MIN Diagnoses Cellulitis L03.90 Leukocytosis D72.829 Atrial fibrillation I48.91 HTN (hypertension) I10 Heart failure with reduced ejection fraction I50.20
[2022-10-18 07:57] LABS: 18KDIGG Band NON-REACTIVE; 23KDIGG Band NON-REACTIVE; 23KDIGM Band REACTIVE; 28KDIGG Band NON-REACTIVE; 30KDIGG Band NON-REACTIVE; 39KDIGG Band NON-REACTIVE; 39KDIGM Band NON-REACTIVE; 41KDIGG Band NON-REACTIVE; 41KDIGM Band NON-REACTIVE; 45KDIGG Band NON-REACTIVE; 58KDIGG Band NON-REACTIVE; 66KDIGG Band NON-REACTIVE; 93KDIGG Band NON-REACTIVE; Lyme Antibodies, WB IgG NEGATIVE (NEGATIVE); Lyme Antibodies, WB IgM NEGATIVE (NEGATIVE)
== END 2022-10-16 12:50 | disposition home or self-care (01) ==
LOC: ED 11:20 → 3N 11:20 → SUATTDRO 14:46 → 3N 15:49